=== PATIENT | male | born 1970 | race African-American/Black ===

== ENCOUNTER 2017-04-16 14:28 | Emergency (ER) | payer MEDICAID ==
[~2017-04-16] VITALS: Ht 182.8 cm; Wt 77.1 kg
== END 2017-04-16 15:12 | disposition home or self-care (01) ==
LOC: ED 14:28
DX: Z48.01 Encounter for change or removal of surgical wound dressing (principal); R03.0 Elevated blood-pressure reading, without diagnosis of hypertension

== ENCOUNTER 2017-04-18 14:10 | Emergency (ER) | payer MEDICAID ==
[~2017-04-18] VITALS: Ht 172.7 cm; Wt 81.6 kg
== END 2017-04-18 15:01 | disposition home or self-care (01) ==
LOC: ED 14:10
DX: Z48.01 Encounter for change or removal of surgical wound dressing (principal); L98.429 Non-pressure chronic ulcer of back with unspecified severity; F17.200 Nicotine dependence, unspecified, uncomplicated

== ENCOUNTER 2017-04-20 11:06 | Emergency (ER) | payer MEDICAID ==
[~2017-04-20] VITALS: Ht 172.7 cm; Wt 83.5 kg
== END 2017-04-20 12:15 | disposition home or self-care (01) ==
LOC: ED 11:06
DX: Z48.00 Encounter for change or removal of nonsurgical wound dressing (principal); Z88.6 Allergy status to analgesic agent; F17.200 Nicotine dependence, unspecified, uncomplicated

== ENCOUNTER 2017-05-26 17:52 | Inpatient (IN) | payer MEDICAID ==
[~2017-05-26] VITALS: Ht 177.8 cm; Wt 77.1 kg
[2017-05-26] VITALS (8 sets, daily range): BP systolic 104–125; BP diastolic 56–99
--- NOTE | ~2017-05-26 | PR ---
[place], [place] PROGRESS NOTE NAME: CAMDEN RO II UNIT #: [id number] ROOM: [facility] DOCTOR: KIRILL SOARES MD BIRTHDATE: [birth year] DOS: 05/29/2017 PULMONARY CRITICAL CARE EVALUATION AND MANAGEMENT SUBJECTIVE: The patient remains in the Intensive Care Unit at this time and treated for multiple wound infections as well as acute respiratory failure with a large area of consolidation, acute pneumonia and respiratory failure. The patient has been continued on mechanical ventilation with assist control mode of mechanical ventilation. The bronchoscopy planned to be done today at the bedside for further assessment with recurrent large area of consolidation, infiltration and also to rule out endobronchial obstruction. Feeding, patient has been tolerated. The feeding, patient has been discontinued temporarily from midnight tonight for the bronchoscopy. Vital signs, low-grade fever was noted, 100.7 degree Fahrenheit with a rectal temperature assessment, respiratory rate between 20-23, heart rate 104-114 with sinus tachycardia, which were noted partially decreased with the use of the intravenous pain medication, which was ordered on a scheduled basis. PHYSICAL EXAMINATION: VITAL SIGNS: The blood pressure ranges between 101/63-90/58. Intake for the patient was noted as 4100 mL, output 2600 mL, pulse oxygen saturation 95% saturation noted for this patient 35% oxygen supplementation mechanical ventilator assist control mode mechanical ventilation. CARDIOVASCULAR: S1, S2 audible. LUNGS: General reduction in the breath sounds were noted in the lungs bilaterally. ABDOMEN: Noted soft. The bowel sounds are present. EXTREMITIES: No new changes. Mild edema and the wound as noted previously. LABORATORY DATA: CBC of the patient that was done for this morning was noted with a WBC count of 16.6, hemoglobin 7.7, hematocrit 25.7, platelet count 299,000. The CMP of the patient of this morning noted glucose 170, BUN 21, creatinine was normal, sodium 151, chloride 118, calcium 7.9, which was corrected with the albumin to be normal. Arterial blood gas today, pH of 7.38, pCO2 of 42, pO2 of 86 on 35% oxygen assist control mode mechanical ventilation. Blood culture for the patient, which was done on admission noted with strep pneumonia isolated for this patient, noted pansensitive organisms. Culture of the endotracheal aspirate was also noted positive for the strep pneumonia, similar organism and culture results with moderate isolation of yeast. Several wound culture was noted with evidence of gram-negative infection as Proteus mirabilis as well as staph species. Blood culture one out of the two for the patient 05/27/2017 noted positive for the budding yeast. IMPRESSION: 1. The patient has been currently noted with acute bilateral multilobar pneumonia with a large area of consolidation with acute streptococcal pneumonia and bacteremia. 2. Several wound infections, which has been currently infected with gram-negative and gram-positive infection. 3. Budding yeast in the blood also considered abnormal. The patient does have [place], [place] PROGRESS NOTE NAME: CAMDEN RO II UNIT #: [id number] ROOM: [facility] DOCTOR: HANNA AKERS MD,KIRILL BIRTHDATE: [birth year] a chronic invasive line, has a multi-lumen catheter inserted on this admission for the IV antibiotic therapy. 4. History of chronic paraplegia. 5. Severe protein-calorie malnutrition. 6. Severe debility, which has been noted previously. PLAN OF TREATMENT: The patient will be ordered the Diflucan 4 mg loading dose and then 20 mg IV daily for candidemia. Continuation of antibiotics. The patient with streptococcal pneumonia and the gram-negative coverage for the wound infection. Continue maximum nutrition status. Proceed with the bronchoscopy for this patient as well, which will be done at the bedside. Obtain the chest x-ray in the morning as well. Long-term acute care facility consultation has been ordered for this patient for possible transfer of the patient in the morning has been considered. In the meantime, no other treatment change in plan and management. Any additional treatment changes necessary will be ordered after the bronchoscopy. Other supportive therapy and plan of management. Also, obtain another prealbumin level in the morning for the patient to reassess the response to the current nutritional status, which has been well tolerated by the patient. Total time of pulmonary critical care evaluation and management was 37 minutes. KIRILL FERREIRA MD CM:PNTRANS [phone] KIRILL AKERS MD 05/30/17 0159 interface
--- NOTE | ~2017-05-26 | PR ---
[place], [place] PROGRESS NOTE NAME: CAMDEN RO II UNIT #: [id number] ROOM: [facility] DOCTOR: KIRILL SOARES MD BIRTHDATE: [birth year] DOS: 06/01/2017 SUBJECTIVE: He was seen and examined on 06/01/2017 in the Intensive Care Unit. 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 The patient does not have any endocarditis otherwise. He has been continued to be treated with antifungal therapy as well as getting intravenous antibiotic for the medical management of pneumonia with Streptococcus. Wound infection noticed in the back, which has been treated for gram-positive and gram-negative infection as well effectively. OBJECTIVE: VITAL SIGNS: Which has been recorded showed the temperature noted 99-99.2 degrees Fahrenheit, respiratory rate recorded between 12-26, heart rate 89-83, blood pressure 139/83-144/83. Intake for this patient was noted as 1730 mL and output 2750 mL. Pulse oxygen saturation was noted as 100% on 45% oxygen assist control mode mechanical ventilation. HEENT: Without any new change. The patient remains orally intubated, orogastric tube is in place. The neck was supple. Head was atraumatic. Multi-lumen catheter remains in place in the right internal jugular vein. CARDIOVASCULAR: S1 and S2 audible. LUNGS: Without any wheezing or crackles were noted. ABDOMEN: Soft, nontender. LABORATORY DATA: Wound culture from which his MediPort tube does not show any abnormal growth. Blood culture taken on 05/30/2017, the patient was noted budding yeast. IMPRESSION: 1. The patient who has been currently noted with acute respiratory failure as a result of acute pneumonia. 2. The patient with septic thrombosis noted in the sputum vena cava with fungemia. 3. The patient with severe protein-calorie malnutrition as well. 4. Multiple wounds. 5. History of chronic paraplegia. PLAN OF TREATMENT: Continue current antifungal therapy as well as antibiotics based on the known infections. Continuation of bronchodilators. Continuation of the other previous therapy, plan of management as in progress. The patient was planned for transfer to another hospital where he will be undergoing the radiology intervention for the suction of thrombosis, which was noted septic from the superior vena cava. In the meantime, continue the antifungal coverage. The patient was not noted any further tachycardia or fever at this time. However, he will remain bacteremic patient until the septic thrombosis would be removed from the superior vena cava. In the meantime, other supportive therapy, plan and management continued. Usual care, other supportive plan and treatment. Total time pulmonary critical care management of this patient was 36 minutes. [place], [place] PROGRESS NOTE NAME: CAMDEN RO II UNIT #: [id number] ROOM: [facility] DOCTOR: KIRILL SOARES MD BIRTHDATE: [birth year] KIRILL FERREIRA MD CM:PEMA [phone] KIRILL AKERS MD 06/02/17 0032 interface
--- NOTE | ~2017-05-26 | EKG ---
[place], [place] ELECTROCARDIOGRAM REPORT NAME: CAMDEN RO II UNIT #: [id number] ROOM: [facility] DOCTOR: HANNA AKERS MD,KIRILL BIRTHDATE: [birth year] DOS: 05/26/2017 ELECTROCARDIOGRAM TIME: 6:38 p.m. Sinus tachycardia noted with heart rate of 127 beats per minute. KIRILL FERREIRA MD CM:EKGRPT:ELECTROCARDIOGRAM REPORT [id number] KIRILL AKERS MD
--- NOTE | ~2017-05-26 | PR ---
[place], [place] PROGRESS NOTE NAME: CAMDEN RO II UNIT #: [id number] ROOM: [facility] DOCTOR: HANNA AKERS MD,KIRILL BIRTHDATE: [birth year] DOS: 05/30/2017 SUBJECTIVE: The patient remained in the Intensive Care Unit. He has been started with intravenous Diflucan ____ because of budding yeast noted in the cultures, which were taken from the MediPort. The patient has multi-lumen catheter, right internal jugular vein, which has been currently used for the infusions of the medications and the blood clots. He has self-extubated last night and was reintubated successfully without any difficulty. The patient remains on the same mechanical ventilator settings with assist controlled mode of mechanical ventilation. OBJECTIVE: VITAL SIGNS: The temperature of the patient noted as 100.6-99.4 degrees Fahrenheit, respiratory rate 22-26, heart rate 96-109, blood pressure 109/54-157/77. Intake for this patient was 3100 mL, output 2750 mL with positive fluid balance of 250 mL. Pulse ox saturation on 35% was 94% saturation recorded this morning on assist controlled mode of mechanical ventilation. The patient has been currently orally intubated, orogastric tube is in place. NECK: Supple. CARDIOVASCULAR: S1, S2 is audible. LUNGS: The patient was noted with decreased breath sounds, scattered crackles, no wheezing. ABDOMEN: Soft and nontender. LABORATORY DATA: Gram stain bronchial washings yesterday showed many white blood cells, rare gram-negative bacilli, gram-positive cocci in pairs and rare budding yeast. Culture results were pending for this patient, finally preliminary showing some growth of yeast. Blood culture from the for this patient were noted as budding yeast in both of the bottles. Chest x-ray done this morning was reviewed for this patient shows bilateral pulmonary infiltration, remains persistent. Endotracheal tube was noted in appropriate position. NG tube was noted in the stomach. The CBC shows WBC count today is 19.4, hemoglobin 7.2, hematocrit 24.0, platelet count 191,000. BMP today: BUN 14, creatinine was normal, glucose 183, sodium 150, potassium 3.2, chloride 117. Prealbumin is improved for the patient from 4-11 on today's lab. The calcium noted at 7.7. IMPRESSION: 1. The patient who has been currently noted with isolation with the yeast most likely the source of infection would be considered from the MediPort. 2. Rule out endocarditis as well. 3. Acute bacterial pneumonia for the patient noted Streptococcus pneumoniae. 4. The patient with multiple wounds infected with gram-positive and gram-negative organisms on the back and other areas. 5. The patient with severe protein-calorie malnutrition. 6. Infestation of the head for the patient possibility of the lice as well. 7. Anemia for this patient related to chronic disease is most likely. 8. Hypernatremia and hypokalemia. PLAN OF TREATMENT: Surgical consultation for this patient for removal of the [place], [place] PROGRESS NOTE NAME: CAMDEN RO II UNIT #: [id number] ROOM: [facility] DOCTOR: HANNA AKERS MD,KIRILL BIRTHDATE: [birth year] MediPort for the patient has been ordered, the MediPort need to be removed. The antifungal therapy will be continued on current antibiotics for the patient's Streptococcus pneumoniae and wound infections. Continuation of other supportive therapy, plan of management and care plan. Other additional treatment changes for the patient needs to be made based on progression of the illness. Other supportive plan of care and treatment. Usual care. Nutrition support continued for this patient at the current level resulting in improvement in protein-calorie malnutrition, which were noted severe. Pain management for the patient to be continued. The tachycardia for patient that has been noted seemed to resolved as the patient was started on Diflucan and also getting the appropriate pain medications. Intermittent temperature elevation was still noted. The assessment and management has been discussed with Dr. Rosalino Catalan, the primary care attending of this patient. The patient was planned for discharge to the long-term acute care facility at this time will not be done until the current resolution occurs for this patient and also the endocarditis is excluded. Total time for pulmonary critical care evaluation and management was 38 minutes. KIRILL FERREIRA MD CM:PNTRANS [phone] KIRILL AKERS MD 05/31/17 0325 interface
--- NOTE | ~2017-05-26 | O ---
[place], [place] OPERATIVE NOTE NAME: CAMDEN RO II UNIT #: [id number] ROOM: [facility] DOCTOR: WES BARRAZA DO BIRTHDATE: [birth year] DOS: 05/30/2017 PROCEDURE: Removal of left-sided MediPort. TECHNIQUE: Consent was not obtained due to patient being intubated and the patient's condition. The patient was left in the bed in the supine position. Procedure was done at bedside. The patient was draped in the usual sterile fashion, 1% lidocaine with epinephrine was used for local anesthetic and delivered to the left chest wall. An incision was made and blunt dissection was performed. The MediPort and catheter were successfully removed. Cultures were obtained from the pocket and a 3-0 Vicryl was used to stitch the fibrin tract of the catheter close. The wound was left open, packed with iodoform soaked Kerlix and the wound was dressed. The patient tolerated the procedure well. ATTENDING PHYSICIAN: Dr. Vera. RESIDENT: Dr. Barraza. ESTIMATED BLOOD LOSS: 5 mL. MEDICATIONS: Propofol. PATIENT'S CONDITION: Stable at bedside. Nba Barraza DO EUSEBIO VERA MD CM:OPRECORD:OPERATIVE NOTE [id number] WES BARRAZA DO 05/31/17 2010 interface
--- NOTE | ~2017-05-26 | PR ---
[place], [place] PROGRESS NOTE NAME: CAMDEN RO II UNIT #: [id number] ROOM: [facility] DOCTOR: KIRILL SOARES MD BIRTHDATE: [birth year] DOS: 05/28/2017 SUBJECTIVE: The patient was seen today for pulmonary critical care management. He has been continued on mechanical ventilation, feeding the patient has been tolerating currently noted 50 mL of Pulmocare per hour. He has not been noted any acute hemodynamic instability, persistent sinus tachycardia was noted. The temperature curve was essentially noted as low grade for this patient. The patient has not been noted with any symptoms of hemoptysis. OBJECTIVE: VITAL SIGNS: For the patient, which has been recorded showed the temperature ranged between 102-100.4 degree Fahrenheit rectal temperature, respiratory rate of 28-23, heart rate 119-112 sinus tachycardia, blood pressure 110/68 to 99/61. The intake for this patient recorded 4.5 liters. The output 2.25 liters positive and 2300 mL approximately. Pulse ox saturation 35% oxygen 100% saturation. HEENT: Examination shows no new change. NECK: Supple. CARDIOVASCULAR: S1, S2 is audible. LUNGS: The patient was noted without any wheezing or crackles. Breaths are noted decreased in the lower portion and the mid portion of the lungs bilaterally. ABDOMEN: Soft, nontender. EXTREMITIES: The patient unchanged multiple wounds of the extremities. The patient and the lower back was noted. LABORATORY DATA: CBC this morning, WBC count 17.2, hemoglobin 7.9, hematocrit 26.1 and platelet count 172,000, 92% segmented neutrophils. CMP of this morning, BUN 28, creatinine was normal, glucose 141, sodium 150, potassium 3.4, chloride 118. Phosphorus 2.0. Albumin 1.2, total protein 6.2. Prealbumin noted only 4. Arterial blood gas pH of 7.39, pCO2 of 37, pO2 of 91.8 with 40% oxygen. Wound culture of the patient was noted with moderate growth of gram-negative bacilli, gram-positive. Cocci for this patient in all of the wound were pending. Identification and sensitivity, vancomycin trough level noted at 13.8. CT scan of the chest that was done without contrast today shows extensive area of consolidation, infiltration noted. Pleural base with some ground-glass opacities noted in the lungs. The differential recurrent would be considered as chronic hypersensitivity pneumonitis as well as bacterial infection combination. There was no discrete mass lesion for the patient were present. IMPRESSION: 1. The patient with acute respiratory failure, most likely secondary to aspiration with extensive bilateral pneumonia with large area of consolidation. 2. Evidence of multiple decubitus wound ____ gram-positive, gram-negative infection. 3. Tachycardia. The patient noted most likely chronic pain. ____ of the pain for this patient because of current multiple decubitus wound.\E\ 4. History of paraplegia. 5. Chronic paraplegia. [place], [place] PROGRESS NOTE NAME: CAMDEN RO II UNIT #: [id number] ROOM: [facility] DOCTOR: KIRILL SOARES MD BIRTHDATE: [birth year] 6. Poor hygiene as well. 7. Very severe protein calorie malnutritional status. PLAN OF MANAGEMENT: The bronchoscopy will be done tomorrow morning for more accurate identification of the culture will be necessary for this patient for further medical management. Continue at this time broad-spectrum intravenous antibiotics. Monitor culture results. Maximizing nutritional status. Long-term acute care facility consultation has been obtained as well. Continuation ventilator bundle management and supportive therapy plan and management as in progress. Other supportive care. The patient was started morphine 2 mg every 6 hours around the clock to control the pain that should result in improvement in the tachycardia. Also, the patient will be given intervenous fluids. The patient because of volume contraction causing tachycardia because of the elevation sodium level. Also, correct electrolyte imbalance, hyponatremia and hypophosphatemia as well. IMPRESSION: Hypernatremia related to possibility use of the ____. The patient has intravascular volume depletion. Also, electrolyte imbalance. KIRILL FERREIRA MD CM:PNTRANS [id number] KIRILL AKERS MD 05/28/17 2011 interface
--- NOTE | ~2017-05-26 | CON ---
[place], [place] REPORT OF CONSULTATION NAME: CAMDEN RO II UNIT #: [id number] ROOM: [facility] DOCTOR: KIRILL SOARES MD BIRTHDATE: [birth year] DOS: 05/27/2017 PULMONARY CRITICAL CARE EVALUATION AND MANAGEMENT CONSULTATION REQUESTED BY: Hospitalist, Dr. Hossein Jerry. REASON FOR CONSULTATION: The patient with acute respiratory failure. HISTORY OF PRESENT ILLNESS: This is a 47-year-old -[place]oc[place] male with history of chronic paraplegia remains at home. He has not been apparently taking care of himself. History; the patient is essentially was obtained for this patient for review of the current medical records, the patient which has been documented by the other physician as well as the nurse's notes. He was brought to the hospital by the girlfriend for the patient. The patient was found to have severe hypoxia of patient on arrival. The patient's oxygen saturations noted 77%. He was noted with a decreased responsiveness and acute respiratory failure with acute sepsis. The patient was admitted, intubated and started on mechanical ventilation. Chest x-ray was noted with multiple bilateral opacity of the lungs. The patient was intubated, has not been reported any symptoms or findings of hemoptysis post-intubation. Currently, the patient has been sedated remains on mechanical ventilator with the reduction of the sedation for this patient. The patient's mental status was noted inadequate patient per nursing staff. The patient was also given Versed intravenously as well as also getting intravenous propofol for the patient for sedation; where he intubated this morning. Assessed with patient; he has been rather noted sedated. REVIEW OF SYSTEMS: Could not be completed because of the patient's current intubation and mechanical ventilation and sedation. PAST MEDICAL HISTORY: Has been noted with history of paraplegia after the spinal cord injury for this patient from the past with accident. Multiple ulcers were noted the patient on the skin for the patient buttocks and other areas as well. SOCIAL HISTORY: The patient was reported as history of tobacco use, unknown quantity and duration. There was no history of alcohol use or any illicit drugs reported. PAST SURGICAL HISTORY: Unknown as well. FAMILY HISTORY: The patient was unknown. HOME MEDICATIONS: The patient was none noted. DRUG ALLERGY HISTORY: THE PATIENT WAS REPORTED ALLERGY TO ASPIRIN, IBUPROFEN AND PPD. CURRENT MEDICATIONS: The patient noted a use of folic acid, vitamin D, Lovenox for DVT prophylaxis 40 mg subcutaneous daily, intravenous normal saline, IV [place], [place] REPORT OF CONSULTATION NAME: CAMDEN RO II UNIT #: [id number] ROOM: [facility] DOCTOR: KIRILL SOARES MD BIRTHDATE: [birth year] Levaquin, vancomycin and meropenem. PHYSICAL EXAMINATION: GENERAL: This is a 47-year-old -[place]oc[place] male who has been currently intubated on mechanical ventilator. Height of 5 feet 10 inches, weight of 170 pounds, BMI 24.3. VITAL SIGNS: Temperature 100.8 degrees Fahrenheit to normal temperature, respiratory rate patient recorded between 32-17, heart rate of sinus tachycardia at 132 beats per minute, still noted with sinus tachycardia rate of 120 beats per minute. Pulse oxygen saturation of the patient was noted as 92% on 40% oxygen supplementation mechanical ventilator. HEENT: Examination of patient shows the patient currently intubated, orogastric tube is in place. Large ____ for this patient was noted. CARDIOVASCULAR: S1, S2 is audible. LUNGS: The patient noted with generalized reduction of breath sounds. There were no wheezing or crackles were heard. ABDOMEN: Soft, flat, nontender. EXTREMITIES: The patient was noted without any edema. Multiple ulcers for this patient and the decubitus wounds are noted in the back and other areas parts of the body as well. CENTRAL NERVOUS SYSTEM: History of chronic paraplegia. The patient is currently sedated. MUSCULOSKELETAL: No gross obvious deformities. LABORATORY DATA: The arterial blood gas of the patient on 05/26/2017, pH of 7.26, pCO2 of 52, pO2 of 148 on intubation and mechanical ventilation yesterday. Arterial blood gas repeated later on in the evening, pH of 7.37, pCO2 of 38, pO2 19, 100% oxygen supplementation arterial blood gas this morning, pH of 7.41, pCO2 of 36, pO2 of 112. The tidal volume for the patient was noted as 500 mL, 40% oxygen, respiratory rate of 12 with 0 PEEP. The other lab for the patient to be continued. Lactic acid noted 3.1 on admission with subsequent lactic acid noted at 1.7 less than 24 hours. PT/PTT for the patient 05/27/2017 noted as normal. The CBC of the patient of 05/26/2017, WBC 41.3, hemoglobin 10.5, hematocrit 34.4, platelet count of 222,000 94% segmented neutrophils were noted. The CBC of the patient that was done for the patient this morning showed WBC count 27.4, hemoglobin 8.2, hematocrit 27.1, platelet count 182,000; 94% segmented neutrophils were noted. Blood culture for the patient; both ____ taken emergently yesterday showed gram-positive cocci in pairs for this patient. The urinalysis the patient yesterday was noted as 2+ leukocyte esterase, 4+ bacteria. The PT, PTT, repeated this morning, the patient essentially noted as normal. CMP of the patient that was done for the patient yesterday on admission, BUN of 42, creatinine was normal. Glucose 161. The potassium was 3.3. Alkaline phosphate 171, mildly elevated. Troponin 0.182. CPK 132 with MB of 2.9. CMP of this morning, BUN 34, creatinine was normal, glucose was normal. Potassium 3.1. The troponin 0.189. Review of the radiology data for this patient personally performed; the chest x-ray of the patient that was done for the patient on admission, 05/26/2017 ___ available shows endotracheal tube were noted 5 cm above the mandy level. Large area opacification appeared to be pleural based patient noted in the left upper lobe with some other scattered infiltration. The right lung for this patient was noted with significant [place], [place] REPORT OF CONSULTATION NAME: CAMDEN RO II UNIT #: [id number] ROOM: [facility] DOCTOR: HANNA AKERS MD,[facility] BIRTHDATE: [birth year] opacification of the lungs for the patient involving almost all of the lungs for the patient with possible haziness throughout the lungs for the patient with possibility of layering pleural fluid or others. The chest x-ray of the patient, which were repeated on 05/26/2017 for this patient shows multi-lumen catheter in place. Chest x-ray of the patient of 05/26/2017 for the patient shows endotracheal tube noted about 4.5 cm above the mandy level with unchanged previously infiltration multi-lumen catheter noted in place at this time on the right internal jugular vein. IMPRESSION: 1. The patient who has been currently admitted to the hospital with severe acute sepsis with acute severe hypoxic respiratory failure secondary to that. 2. Acute pneumonia would be considered for aspiration of gram-positive organism, gram-positive cocci bacteremia. For the patient with differential diagnosis streptococcal pneumonia, strep B hemolytic organisms as well as Enterococcus remains in the consideration. 3. Multiple decubitus wounds. The patient with infection as well. 4. Rule out mass-like lesion pleural based for this patient in the left upper lobe as well with the current chest x-ray assessment. 5. Severe protein-calorie malnutrition. 6. History of chronic nicotine dependence. 7. Mild elevation of BUN, mostly secondary to intravascular volume depletion. 8. Mild hyperglycemia was also noted secondary to acute illness. PLAN OF MANAGEMENT: The patient is already getting multiple broad spectrum intravenous antibiotics, which will be closely monitored. Gram-positive cocci bacteremia culture will be monitored from the blood for this patient. Endotracheal aspirate culture was taken. CT scan of the chest was ordered to be done tomorrow morning with intravenous contrast for further assessment of current radiologic abnormality including rule out mass in the left upper lobe as well. DVT prophylaxis: We will continue with Lovenox. Ventilator bundle management and nutrition support was started for the patient. Prealbumin level. The patient will be obtained as well to determine the severity of the protein-calorie malnutrition status. Continue intravenous fluids for this patient as well. We will closely monitor urinary output. Other supportive therapy, plan of management care. Assessment for the patient while the surgery will be recommended about his decubitus wound assessment and further recommendation. Mechanical ventilation changes have been made for the patient started the patient PEEP of 5.0. Continue the same oxygen supplementation, respiratory rate has been decreased to 12 and assist-controlled mode of mechanical ventilation will be continued. All other supportive therapy, plan of management, vasopressor therapy for this patient in case of any further hypertension will be recommended. Sedation medication for the patient would be done for this patient for assessment of the mental status. Other supportive therapy, plan and management and care. Bronchodilator to help mobilize secretions will be continued. Other supportive plan of therapy, care and management plan of care. Usual care, other additional therapy, plan of management. Additional change in treatment will be done for the patient based on the progression of the illness. [place], [place] REPORT OF CONSULTATION NAME: CAMDEN RO II UNIT #: [id number] ROOM: [facility] DOCTOR: HANNA AKERS MD,KIRILL BIRTHDATE: [birth year] Total time, the patient pulmonary critical care evaluation and management and consultation, 42 minutes. KIRILL FERREIRA MD CM:CONSTR:REPORT OF CONSULTATION 1400 06/01/17 0713 interface
--- NOTE | ~2017-05-26 | PROC NOTE ---
[place], [place] PROCEDURE NOTE NAME: CAMDEN RO II UNIT #: [id number] ROOM: [facility] DOCTOR: HANNA AKERS MD,KIRILL BIRTHDATE: [birth year] DOS: 05/29/2017 BRONCHOSCOPY NOTE PREOPERATIVE DIAGNOSES: The patient with large area of consolidation noted in the lungs bilaterally. Greater infiltration noted in the left and the right side, multilobar involvement was noted. POSTOPERATIVE DIAGNOSES: Copious amount of purulent secretions suctioned out, failing the left main stem bronchus, left upper lingular and lower lobe bronchus. There were no endobronchial obstructive lesions were noted. PROCEDURE DESCRIPTION: Informed consent was obtained. Power of research attorney. The patient was transferred to the negative pressure room. The bronchoscopy done at the bedside. Sedation was continued. Video fiberoptic bronchoscope advanced to the endotracheal tube lower part of the trachea, which shows small amount of purulent secretions suctioned out katerine level. Katerine noted sharp. Right upper, middle, lower lobe bronchi are noted with minimal secretions. The washings were done from all the bronchial subsegments in the right side. The left main stem noted field with copious purulent material with some mucous mixture. All secretions suctioned out. Some impaction in the deeper plugs of the mucus noted in the left upper lingula and lower lobe bronchi as well. All the secretions suctioned out clear with the help of normal saline wash and sent for cultures. Procedure was well tolerated by the patient at this time without any difficulty. No changes in the treatment at this time will be necessary. Continue current antibiotic previously. Monitoring culture results. Other supportive therapy, plan. The feeding to be resumed after bronchoscopy. KIRILL FERREIRA MD CM:PROCNOTE:PROCEDURE NOTE [id number] KIRILL AKERS MD
--- NOTE | ~2017-05-26 | PR ---
[place], [place] PROGRESS NOTE NAME: CAMDEN RO II UNIT #: [id number] ROOM: [facility] DOCTOR: HANNA AKERS MD,KIRILL BIRTHDATE: [birth year] DOS: 05/31/2017 PULMONARY CRITICAL CARE EVALUATION AND MANAGEMENT SUBJECTIVE: The patient remains in the Intensive Care Unit sedated with intravenous Diprivan, also p.r.n. use of Versed. This morning the patient's sedation was decreased. He has been noted awake, remains on the mechanical ventilator. The patient has extraction of the MediPort done yesterday from the left chest, which was noted most likely infected and causing candidemia. The culture was sent. The MediPort was removed. Currently, he has an open wound. Possible open healing might be suggested by the surgeon. The patient's feeding has been currently placed on hold. He was planned for the transesophageal echocardiogram to be done today to rule out endocarditis. The patient was continued on antibiotics for acute streptococcal pneumonia as well. OBJECTIVE: VITAL SIGNS: For the temperature curve was noted between 100.8 degree Fahrenheit to normal ____ oral temperature assessment. The respiratory rate ranges between 19-28. Heart rate noted 92-103. Blood pressure 122/71-109/66. Pulse oxygen saturation on 45% oxygen supplementation on assist control mode of mechanical ventilation was 98% saturation this morning. HEENT: Examination shows patient remains intubated. Orogastric tube is in place. Head was atraumatic. NECK: Supple. CARDIOVASCULAR: S1, S2 audible. LUNGS: The patient was noted with moderate decreased breath sounds in the lungs bilaterally. ABDOMEN: Soft, nontender. EXTREMITIES: Noted chronic paraplegia with moderate edema of the upper and both lower extremities. LABORATORY DATA: CBC this morning, WBC count 17.6, hemoglobin 6.4, hematocrit 21.5, platelet count 210,000. Urine culture was noted with light growth of yeast. Arterial blood gas this morning 45% oxygen, pH of 7.47, pCO2 of 38, pO2 of 87 on assist control mode of mechanical ventilation. The CMP that was done this morning shows glucose 127, BUN 12, creatinine was normal, potassium 3.1, sodium of 148, albumin of 1.2 with alkaline phosphatase of 117. Blood culture on as noted previously was budding yeast. Culture of the MediPort: Preliminary showed no bacterial growth ____. Wound culture noted few white blood cells without any organisms noted. IMPRESSION: 1. The patient who has been currently noted persistent acute severe hypoxic respiratory failure with multilobar pneumonia. The patient with area of consolidation in the lungs, staphylococcal in origin. ____ candidemia for this patient as well. 2. The patient with severe protein-calorie malnutrition, which is improving. 3. Status post removal of the MediPort. 4. Hypokalemia. 5. Progressive anemia of the patient, rule out any gastrointestinal bleeding [place], [place] PROGRESS NOTE NAME: CAMDEN RO II UNIT #: [id number] ROOM: [facility] DOCTOR: HANNA AKERS MD,KIRILL BIRTHDATE: [birth year] for patient as well. 6. History of chronic paraplegia. 7. Edema of the upper and the lower extremities secondary to mechanical ventilation and other issues with poor nutritional status. 8. Resolving hypernatremia. PLAN OF MANAGEMENT: Continuation of the DVT prophylaxis. Proceed with transesophageal echocardiogram. Continuation of antifungal therapy and the medical management of the pneumonia as well. The patient will be continued on sedation as well. Blood transfusion of 2 packed RBC will be necessary to improve his progressive anemia. Nutritional support as tolerated. All the other ventilator bundle management. Usual care. Other therapy, plan of management and care. Total time pulmonary critical care evaluation and management was 33 minutes. KIRILL FERREIRA MD CM:PNTRANS [id number] KIRILL AKERS MD 06/01/17 005 interface
--- NOTE | 2017-05-26 18:22 | NUR ---
INTUBATED BY DR TAVARES WITH 7.5 ET TUBE. EQUAL BREATH SOUNDS THROUGHOUT. +CO2 DETECTOR CHANGE. END TIDAL 40. POX 98% WITH VENT. MARIA LUISA GANDHI RN
--- NOTE | 2017-05-26 19:42 | NUR ---
PROPOFOL RATE INCREASED TO 10MCG PER DR HITCHCOCK.
[2017-05-26 19:52] LABS: ABG BASE EXCESS -3.3 mmol/L (-2.0-2.0); ABG HCO3 23.3 mmol/l (22-26); ARTERIAL BLOOD GAS PCO2 52.9 mmHg (35-45); ARTERIAL BLOOD GAS PH 7.268 (7.35-7.45)
[2017-05-26 19:53] LABS: HEMATOCRIT 34.4 % (42.0-52.0); HEMOGLOBIN 10.5 g/dl (14.0-18.0); MEAN CELL VOLUME 77.7 fl (80.0-94.0); MEAN CORPUSCULAR HGB 23.7 pg (27.0-31.0); MEAN CORPUSCULAR HGB CONC 30.5 g/dl (33.0-37.0); MEAN PLATELET VOLUME 10.2 fl (9.6-12.3); PLATELET COUNT AUTOMATED 222 10*3/uL (130-400); RED BLOOD COUNT 4.43 10*6/uL (4.50-5.90); RED CELL DISTRI WIDTH 23.4 % (0-14.5)
--- NOTE | 2017-05-26 20:00 | NUR ---
LACTIC 4.2. DR. HITCHCOCK AWARE.
[2017-05-26 20:03] LABS: ACT PARTIAL THROMBO TIME 39.7 SECONDS (20.8-31.5); INTERNATIONAL NORM RATIO 1.1 (2.0-3.5)
[2017-05-26 20:07] LABS: ALBUMIN 1.5 gm/dl (3.1-4.5); ALKALINE PHOSPHATASE 171 U/L (45-117); BUN 42 mg/dl (7-24); CHLORIDE 102 mmol/L (98-107); CKMB 2.9 ng/ml (0.5-3.6); CPK 154 U/L (39-308); CREATININE 1.03 mg/dL (0.70-1.30); LIPASE 40 U/L (73-393); POTASSIUM 3.3 mmol/L (3.5-5.1); SGOT/AST 14 IU/L (3-35); SGPT/ALT 15 U/L (12-78); SODIUM 138 mmol/L (136-145); TOTAL PROTEIN 7.5 gm/dL (6.4-8.2)
[2017-05-26 20:12] LABS: WHITE BLOOD COUNT 41.3 10*3/uL (4.8-10.8)
--- NOTE | 2017-05-26 20:12 | NUR ---
CRITICAL LAB RESULT WBC 41.3, DR HITCHCOCK AWARE.
[2017-05-26 20:14] LABS: MICROCYTOSIS SLIGHT; PLATELET SUFFICIENCY NORMAL (NORMAL); TOTAL CELLS COUNTED 100 #CELLS
[2017-05-26 20:15] LABS: BURR CELLS FEW
--- NOTE | 2017-05-26 20:15 | NUR ---
CRITICAL LAB RESULT TROPONIN 0.182, DR HITCHCOCK AWARE.
[2017-05-26 20:18] LABS: TROPONIN I 0.182 ng/ml (<0.045)
--- NOTE | 2017-05-26 20:43 | NUR ---
A 47, admitted to ICCU, under the services of EDITH Huff DO with a diagnosis of SEPSIS. Chief complaint is SOB X 3 DAYS. Patient arrived via stretcher from ER.INTUBATED IN ER PT WITH MULTIPLE OPEN WOUNDS, FOUL SMELLING Monitor applied. Initial assessment completed. Vital signs taken and recorded. EDITH HUFF DO notified of admission to the unit. Orders received. See assessment for past medical history, medications and allergies. Patient and/or family oriented to unit. [facility] visitation policy reviewed. Clothing/patient valuable form completed. ESTRELLA VICK
[2017-05-26 22:04] LABS: BILIRUBIN 1+ (NEGATIVE); BLOOD 2+ (NEGATIVE); CLARITY TURBID (CLEAR); COLOR YELLOW (YELLOW); GLUCOSE NEGATIVE (NEGATIVE); KETONE NEGATIVE (NEGATIVE); LEUKO ESTERASE 2+ (NEGATIVE); NITRITE NEGATIVE (NEGATIVE); SPECIFIC GRAVITY 1.015 (1.005-1.030)
[2017-05-26 22:16] LABS: BACTERIA 4+; WBC TNTC wbc/hpf (0-5)
[2017-05-26 23:10] LABS: ABG BASE EXCESS -2.7 mmol/L (-2.0-2.0); ABG HCO3 21.8 mmol/l (22-26); ABG O2 SATURATION 99.3 % (95-97); ARTERIAL BLOOD GAS PH 7.373 (7.35-7.45)
[2017-05-27] VITALS (12 sets, daily range): BP systolic 89–109; BP diastolic 44–65
--- NOTE | 2017-05-27 02:33 | NUR ---
DOCTOR VADIM TO THE FLOOR AMDE HIM AWARE OF CRITCAL LACTIC ACID AND OF PATIENTS HEART RATE IN THE 120'S HE SAID JUST KEEP AN EYE ON HEART RATE AND LACTIC ACID IS COMING DOWN AND PATIENT IS ALREADY ON FLUIDS THATS GOOD.
--- NOTE | 2017-05-27 04:45 | NUR ---
CALLED DOCTOR VADIM INFORMED HIM PATIENT HEART RATE WAS 130 ORDRES RECIEVED.
--- NOTE | 2017-05-27 05:31 | NUR ---
CALLED JALEN FIERRO INFORMED HIM OF PATIENTS BLOOD CULTURE RESULTS AND CURRENT HEART RATE DUIRNG FLUID BOLUS. HE SAID OK.
[2017-05-27 05:47] LABS: ABG BASE EXCESS -1.5 mmol/L (-2.0-2.0); ABG HCO3 22.4 mmol/l (22-26); ARTERIAL BLOOD GAS PH 7.41 (7.35-7.45)
[2017-05-27 06:18] LABS: MEAN CELL VOLUME 77.4 fl (80.0-94.0); MEAN CORPUSCULAR HGB 23.4 pg (27.0-31.0); MEAN CORPUSCULAR HGB CONC 30.3 g/dl (33.0-37.0); MEAN PLATELET VOLUME 11.1 fl (9.6-12.3); PLATELET COUNT AUTOMATED 182 10*3/uL (130-400); RED CELL DISTRI WIDTH 23.4 % (0-14.5); WHITE BLOOD COUNT 27.4 10*3/uL (4.8-10.8)
--- NOTE | 2017-05-27 06:24 | NUR ---
CALLED DOCTOR BLEIBEL PATIENTS LATIC ACID 2.3 NO NEW ORDRES AT THIS TIME.
[2017-05-27 06:28] LABS: ACT PARTIAL THROMBO TIME 35.1 SECONDS (20.8-31.5); INTERNATIONAL NORM RATIO 1.1 (2.0-3.5)
[2017-05-27 06:31] LABS: HEMATOCRIT 27.1 % (42.0-52.0); HEMOGLOBIN 8.2 g/dl (14.0-18.0)
[2017-05-27 06:37] LABS: ALBUMIN 1.2 gm/dl (3.1-4.5); ALKALINE PHOSPHATASE 133 U/L (45-117); BUN 34 mg/dl (7-24); CHLORIDE 110 mmol/L (98-107); CHOLESTEROL 71 mg/dL (<200); CREATININE 0.76 mg/dL (0.70-1.30); FREE T4 1.23 ng/dl (0.76-1.46); HDL CHOLESTEROL 10 mg/dl (40-60); LDL CHOLESTEROL 22 mg/dL (9-159); MAGNESIUM 1.7 mg/dL (1.5-2.1); PHOSPHOROUS 2.3 mg/dL (2.5-4.9); POTASSIUM 3.1 mmol/L (3.5-5.1); SGOT/AST 10 IU/L (3-35); SGPT/ALT 12 U/L (12-78); SODIUM 143 mmol/L (136-145); TOTAL PROTEIN 5.9 gm/dL (6.4-8.2); TRIGLYCERIDES 193 mg/dl (<150); VLDL CHOLESTEROL 39 mg/dL (6-40)
[2017-05-27 06:39] LABS: TROPONIN I 0.189 ng/ml (<0.045)
[2017-05-27 06:42] LABS: THYROID STIM HORMONE (HS) 0.743 uIU/ml (0.358-4.75)
--- NOTE | 2017-05-27 06:45 | NUR ---
CALLED DOCTOR FIERRO PATIENT TROPONIN NO NEW ORDERS AT THIS TIME.
[2017-05-27 06:53] LABS: BURR CELLS FEW; MICROCYTOSIS SLIGHT; PLATELET SUFFICIENCY NORMAL (NORMAL); TOTAL CELLS COUNTED 100 #CELLS
[2017-05-27 07:25] LABS: VITAMIN D, 25-HYDROXY 5.5 ng/mL (30-100)
--- NOTE | 2017-05-27 08:53 | NUR ---
DR FERREIRA IN TO SEE PT.
[2017-05-27] MEDS ORDERED: NATURE'S BLEND F1 MG PO (09:55)
[2017-05-27] MEDS ORDERED: BACLOFEN20 M1 PO (09:55)
[2017-05-27] MEDS ORDERED: PROTONIX40 MG PO (09:56)
[2017-05-27] MEDS ORDERED: ZOFRAN4 MG PO (09:57)
[2017-05-27] MEDS ORDERED: IRON325 M1 PO (09:57)
[2017-05-27] MEDS ORDERED: HUMALOG100 UNIT/2 SQ (09:59)
[2017-05-27] MEDS ORDERED: LANTUS SOL100 UNIT/1 SQ (09:59)
[2017-05-27] MEDS ORDERED: NITROSTAT0.4 MG SL (10:00)
[2017-05-27] MEDS ORDERED: HYDROCODON-ACE1 EACH PO (10:02)
[2017-05-27] MEDS ORDERED: VALIUM10 MG PO (10:03)
[2017-05-27] MEDS ORDERED: OXYCODONE HCL20 M1 PO (10:05)
[2017-05-27] MEDS ORDERED: METFORMIN1000 MG PO (10:05)
[2017-05-27] MEDS ORDERED: HYDROCODONE-IB1 EACH PO (10:08)
--- NOTE | 2017-05-27 10:08 | NUR ---
PT MED LIST RECIEVED FROM SHAHEEN [facility]LTON PHARMACIST. MED LIST UPDATED IN COMPUTER AND LIST PLACED ON CHART.
--- NOTE | 2017-05-27 10:14 | NUR ---
PHYSICAL THERAPY Attempted PT eval this date, per nursing pt is intubated and sedated currently and not appropriate canadate for therapy at this time. Will continue to monitor daily and evaluate when indicated. LEVI EvansT
--- NOTE | 2017-05-27 11:20 | NUR ---
CAMDEN RO II [id number] Please refer to the physician's history and physical for past medical history, comorbid conditions, and allergies. Diagnosis: PARAPLEGIA FOLLOWING SPINAL CORD INJURY SEVERE David Score: 9,VERY HIGH RISK WOUND DESCRIPTIONS: Location of the wound: left ankle Type of wound: stage 4 Thickness: Full Size: 1.5cm x 1.5cm x 0.3cm Tunneling: none Undermining: none Sinus Tract: none Presence of Exudate: serosanguineous Amount: Light Color: Yellow Odor: Foul Periwound Skin Appearance: Normal Wound edges: approximated Pain (associated with wound): none at time of assessment How does patient state this happened? pt unable to state how this happened Location of the wound: right heel Type of wound: unstageable Thickness: Full Size: 4.5cm x 3.5cm x <0.1cm Tunneling: none Undermining: none Sinus Tract: none Presence of Exudate: none Amount: none Color: Brown Odor: None Periwound Skin Appearance: Normal Wound edges: closed Pain (associated with wound): none at time of assessment How does patient state this happened? pt unable to state how this happened Location of the wound: sacrum Type of wound: stage 4 Thickness: Full Size: 9.5cm x 18.0cm c 0.2cm Tunneling: none Undermining: none Sinus Tract: none Presence of Exudate: serosanguineous Amount: Heavy Color: Brown, yellow, red, white Odor: Foul Periwound Skin Appearance: Macerated Wound edges: approximated Pain (associated with wound): none at time of assessment How does patient state this happened? pt unable to state how this happened Location of the wound: left buttocks Type of wound: stage 4 Thickness: Full Size: 7.0cm x 4.0cm x 4.0cm Tunneling: none Undermining: yes Sinus Tract: none Presence of Exudate: serosanguineous Amount: Heavy Color: Yellow Odor: foul Periwound Skin Appearance: Macerated Wound edges: approximated Pain (associated with wound): none at time of assessment How does patient state this happened? pt unable to state how this happened Location of the wound: right buttocks Type of wound: stage 4 Thickness: Full Size: 11.0cm x 7.0cm x 2.4cm Tunneling: none Undermining: none Sinus Tract: none Presence of Exudate: serosanguineous Amount: Light Color: Yellow Odor: foul Periwound Skin Appearance: macerated Wound edges: approximated Pain (associated with wound): none at time of assessment How does patient state this happened? pt unable to state how this happened Surface the patient is resting on: XPRT SKIN PREVENTION RECOMMENDATION: 1. Pressure redistribution support surface as appropriate 2. Elevate heels 3. Remove boots/TEDS every shift and reapply 4. Head of bed 30 degrees as tolerated 5. Assess nutrition and hydration 6. Manage moisture 7. Avoid the use of containment devices while in bed 8. Use absorptive products on surfaces limit layers of linens on bed 9. Turn and reposition every 1-2 hours in bed and every 1 hour in chair as tolerated 10. Weight shifts every 15 minutes while up in chair 11. Offloading with pillows or device to keep heels elevated off bed 12. Monitor skin at least every shift 13. Inspect under medical devices twice a day WOUND TREATMENT RECOMMENDATIONS: cleanse left outer ankle with nss and apply sureprep to surrounding wound then apply versatel to wound bed then cover with therahoney with optifoam gentle. Cleanse areas to coccyx with nss and apply sureprep to the surrounding wound then cover wound bed with maxorb ag the cover with abd and tape. Heel raiser pro boots.
--- NOTE | 2017-05-27 11:37 | NUR ---
DR VEGA MADE AWARE OF NEW CONSULT ORDER AND IN TO SEE PT AT THIS TIME.
--- NOTE | 2017-05-27 12:31 | NUR ---
TUBE FEEDING STARTED AT 40CC/HR.
--- NOTE | 2017-05-27 14:15 | NUR ---
PT MEDICATED WITH TYLENOL 650MG VIA OG TUBE FOR ELEVATED TEMP TODAY.
--- NOTE | 2017-05-27 14:54 | NUR ---
PHYSICAL THERAPY PAtient intubated. No appropriate for PT at this time. Thank you for this referral. Lianna De Santiago,PT
--- NOTE | 2017-05-27 15:21 | NUR ---
PT AWAKE WITH EYES OPEN LOOKING AROUND AT THIS TIME. PT BECOMING ANXIOUS. MEDICATED WITH VERSED 5MG IV ORDERED.
--- NOTE | 2017-05-27 15:56 | NUR ---
PT HEART RATE REMAINS SINUS TACHY 119-125. DR KILPATRICK IN THE ICU AT THIS TIME AND MADE AWARE OF THIS.
--- NOTE | 2017-05-27 20:01 | NUR ---
PATIENT GIVEN TYLENOL FOR RECTAL TEMP OF 102.1. WILL CONTINUE TO MONITOR.
--- NOTE | 2017-05-27 22:00 | NUR ---
CALLED DOCTOR VADIM RECHECKED PATIENTS TEMP WAS STILL 102.0 RECTAL. HE SAID JUST WATCH HIM RECHECK AT MIDNIGHT.
[2017-05-28] VITALS (12 sets, daily range): BP systolic 90–119; BP diastolic 53–68
--- NOTE | 2017-05-28 | NUR ---
RECHECKED PATIENT TEMP 100.9 RECTAL CALLED DOCTOR FIERRO HE SAID THATS FINE AND TO RECHECK AT 0400.
[2017-05-28 04:56] LABS: HEMATOCRIT 26.1 % (42.0-52.0); HEMOGLOBIN 7.9 g/dl (14.0-18.0); MEAN CELL VOLUME 77.4 fl (80.0-94.0); MEAN CORPUSCULAR HGB 23.4 pg (27.0-31.0); MEAN CORPUSCULAR HGB CONC 30.3 g/dl (33.0-37.0); NUCLEATED RED BLOOD CELL 0.1 % (0.0-0.0); PLATELET COUNT AUTOMATED 172 10*3/uL (130-400); RED BLOOD COUNT 3.37 10*6/uL (4.50-5.90); RED CELL DISTRI WIDTH 23.9 % (0-14.5); WHITE BLOOD COUNT 17.2 10*3/uL (4.8-10.8)
[2017-05-28 05:12] LABS: ALBUMIN 1.2 gm/dl (3.1-4.5); ALKALINE PHOSPHATASE 260 U/L (45-117); BUN 28 mg/dl (7-24); CHLORIDE 118 mmol/L (98-107); CREATININE 0.69 mg/dL (0.70-1.30); POTASSIUM 3.4 mmol/L (3.5-5.1); PREALBUMIN 4 mg/dl (20-40); SGOT/AST 16 IU/L (3-35); SGPT/ALT 12 U/L (12-78); SODIUM 150 mmol/L (136-145); TOTAL PROTEIN 6.2 gm/dL (6.4-8.2)
--- NOTE | 2017-05-28 05:16 | NUR ---
PATIENT GIVEN TYLENOL FOR RECTAL TEMP OF 100.4 WILL CONTINUE TO MONITOR.
[2017-05-28 05:27] LABS: TOTAL CELLS COUNTED 100 #CELLS
[2017-05-28 05:28] LABS: PLATELET SUFFICIENCY NORMAL (NORMAL); POLYCHROMASIA SLIGHT
[2017-05-28 05:33] LABS: ABG BASE EXCESS -1.3 mmol/L (-2.0-2.0); ABG HCO3 22.5 mmol/l (22-26); ARTERIAL BLOOD GAS PCO2 37.8 mmHg (35-45); ARTERIAL BLOOD GAS PH 7.398 (7.35-7.45); ARTERIAL BLOOD GAS PO2 91.8 mmHg (80-90)
--- NOTE | 2017-05-28 07:50 | NUR ---
24 HR chart check completed.
--- NOTE | 2017-05-28 07:59 | NUR ---
this client is not presently suicidal and would not require mental healthintervention.
--- NOTE | 2017-05-28 08:16 | NUR ---
PHYSICAL THERAPY Patient continues on vent. Lianna Afsaneh De Santiago,PT
--- NOTE | 2017-05-28 09:00 | NUR ---
ALL DRESSINGS HAD TO BE CHANGED THIS AM R/T NOT INTACT AND SOILED.
--- NOTE | 2017-05-28 11:00 | NUR ---
TAKEN AND RETURNED FOR CTA. PT TOLERATED WELL.
--- NOTE | 2017-05-28 11:23 | NUR ---
Patient clinicals faxed to [facility] for [facility] referral. Waiting on acceptance.
--- NOTE | 2017-05-28 15:37 | NUR ---
[facility] nurse stated patient has had a previous stay at [facility]. I called [facility] to see if they may have an HPOA on file. Donell stated patient has previously been at [facility] and there is no HPOA or family on record. Patient has been accepted to [facility] and can go Wednesday morning.
--- NOTE | 2017-05-28 16:09 | NUR ---
ASTRID FROM [facility] CALLED IN AND STATED THAT PT IS ON THEIR SERVICES AND WILL SEND A LIST OF HIS MEDS AND WOUND CARE TO US THAT ARE PRESCRIBED BY DR CIARAN JIMENEZ OUT OF [place].
[2017-05-28] MEDS ORDERED: HALOPERIDOL1 MG PO (17:46)
--- NOTE | 2017-05-28 19:36 | NUR ---
ASSESSMENT COMPLETED. OGT PLACEMENT VERIFIED BY AIR BOLUS/AUSCULTATION. HOB ELEVATED. FREE WATER WAS ORDERED VIA OGT. VERSED FOR AGITATION AND TYLENOL FOR TEMPERATURE OF 100.9. BED IN TURNING MODE. BILATERAL HEEL PROTECTORS ON. ILEOSTOMY TO RAIN BAG PATENT. COLOSTOMY FUNCTIONAL. PULMONARY TUBE FEEDING CONTINUES VIA OGT AT 50CC/HR. OTHER THAN PT CONTINUING TO BE TACHYCARDIC AT 120/MIN, OTHER VS ARE STABLE.
--- NOTE | 2017-05-28 20:10 | NUR ---
VERSED EFFECTIVE...PT CALM AT THIS POINT.
--- NOTE | 2017-05-28 21:32 | NUR ---
RESTORIL GIVEN FOR SLEEP.
[2017-05-29] VITALS (12 sets, daily range): BP systolic 93–157; BP diastolic 59–87
--- NOTE | 2017-05-29 00:48 | NUR ---
COMPLETE BATH AND BED LINEN CHANGE DONE. VERSED GIVEN PRIOR TO BATH WELL VERSED AT 2039 TYLENOL AT 1944 AND RESTORIL AT 2114 ALL EFFECTIVE FOR AGITATION, FEVER AND SLEEP.
--- NOTE | 2017-05-29 03:41 | NUR ---
[facility] FOR [facility]ONCHOSCOPY THIS AM.
[2017-05-29 04:35] LABS: HEMATOCRIT 25.7 % (42.0-52.0); HEMOGLOBIN 7.7 g/dl (14.0-18.0); MEAN CELL VOLUME 78.1 fl (80.0-94.0); MEAN CORPUSCULAR HGB 23.4 pg (27.0-31.0); MEAN PLATELET VOLUME 11.5 fl (9.6-12.3); NUCLEATED RED BLOOD CELL 0.1 10*3/uL (0.0-0.0); NUCLEATED RED BLOOD CELL 0.4 % (0.0-0.0); PLATELET COUNT AUTOMATED 199 10*3/uL (130-400); RED BLOOD COUNT 3.29 10*6/uL (4.50-5.90); RED CELL DISTRI WIDTH 24.3 % (0-14.5); WHITE BLOOD COUNT 16.6 10*3/uL (4.8-10.8)
[2017-05-29 04:59] LABS: MICROCYTOSIS SLIGHT; PLATELET SUFFICIENCY NORMAL (NORMAL); TOTAL CELLS COUNTED 100 #CELLS
[2017-05-29 05:07] LABS: ALBUMIN 1.2 gm/dl (3.1-4.5); BUN 21 mg/dl (7-24); CHLORIDE 118 mmol/L (98-107); CREATININE 0.64 mg/dL (0.70-1.30); MAGNESIUM 2.1 mg/dL (1.5-2.1); PHOSPHOROUS 2.7 mg/dL (2.5-4.9); POTASSIUM 3.7 mmol/L (3.5-5.1); SGOT/AST 14 IU/L (3-35); SGPT/ALT 12 U/L (12-78); SODIUM 151 mmol/L (136-145); TOTAL PROTEIN 6.4 gm/dL (6.4-8.2)
[2017-05-29 05:08] LABS: ALKALINE PHOSPHATASE 261 U/L (45-117)
[2017-05-29 05:59] LABS: ABG HCO3 24.4 mmol/l (22-26); ABG O2 SATURATION 95.7 % (95-97); ARTERIAL BLOOD GAS PCO2 42.6 mmHg (35-45); ARTERIAL BLOOD GAS PH 7.38 (7.35-7.45); ARTERIAL BLOOD GAS PO2 86.8 mmHg (80-90)
--- NOTE | 2017-05-29 20:00 | NUR ---
PATIENT REMAINS INTUBATED AND SEDATED. PATIENT SHOWING NO SIGNS OF DISTRESS. WILL CONTINUE TO MONITOR.
--- NOTE | 2017-05-29 21:00 | NUR ---
VENT ALARMING, SUCTIONED PATIENT, HEARD GURGLING. CHECKED ENDO TUBE, SHOWING 19 AT LIP, WAS 25. TUBE MADE ITS WAY UP PASSED VOCAL CORDS. CONTACTED DR. FERREIRA HE WANTED HIM REINTUBATED. CONTACTED LENCHO, SHE CALLED DESIREES[facility]onell. PATIENT PUT ON 50% VENTURI, SAT O2 98-100%. PATIENT STABLE AT THIS TIME.
--- NOTE | 2017-05-29 22:00 | NUR ---
PATIENT REINTUBATED BY RONEN. HE ALSO FOUND A PARTIAL IN MOUTH THAT WAS NOT REMOVED PRIOR TO FIRST INTUBATION. PATIENT TOLERATED WELL.
[2017-05-30] VITALS (12 sets, daily range): BP systolic 98–126; BP diastolic 54–71
--- NOTE | 2017-05-30 00:32 | NUR ---
PATIENT SHOWING AGITATION. VERSED GIVEN TO HELP CALM DOWN. WILL CONTINUE TO MONITOR.
--- NOTE | 2017-05-30 01:09 | NUR ---
PATIENT STILL SHOWING SOME AGITATION AFTER VERSED WAS GIVEN. WILL CONTINUE TO MONITOR.
--- NOTE | 2017-05-30 03:35 | NUR ---
TYLENOL GIVEN FOR R TEMP OF 101.6. WILL MONITOR.
[2017-05-30 05:16] LABS: HEMOGLOBIN 7.2 g/dl (14.0-18.0); MEAN CELL VOLUME 78.4 fl (80.0-94.0); MEAN CORPUSCULAR HGB 23.5 pg (27.0-31.0); MEAN PLATELET VOLUME 11.2 fl (9.6-12.3); NUCLEATED RED BLOOD CELL 0.1 10*3/uL (0.0-0.0); NUCLEATED RED BLOOD CELL 0.4 % (0.0-0.0); PLATELET COUNT AUTOMATED 195 10*3/uL (130-400); RED BLOOD COUNT 3.06 10*6/uL (4.50-5.90); RED CELL DISTRI WIDTH 24.4 % (0-14.5); WHITE BLOOD COUNT 19.4 10*3/uL (4.8-10.8)
--- NOTE | 2017-05-30 05:18 | NUR ---
VERSED GIVEN TO HELP CALM DOWN PATIENT DURING ABG'S. EFFECTIVE.
[2017-05-30 05:26] LABS: BUN 14 mg/dl (7-24); CHLORIDE 117 mmol/L (98-107); CREATININE 0.56 mg/dL (0.70-1.30); POTASSIUM 3.2 mmol/L (3.5-5.1); SODIUM 150 mmol/L (136-145)
[2017-05-30 05:30] LABS: PREALBUMIN 11 mg/dl (20-40)
[2017-05-30 05:35] LABS: PLATELET SUFFICIENCY NORMAL (NORMAL); TOTAL CELLS COUNTED 100 #CELLS
[2017-05-30 05:36] LABS: MICROCYTOSIS MODERATE
[2017-05-30 05:53] LABS: ABG BASE EXCESS 3.6 mmol/L (-2.0-2.0); ABG HCO3 26.7 mmol/l (22-26); ABG O2 SATURATION 97.4 % (95-97); ARTERIAL BLOOD GAS PCO2 36.2 mmHg (35-45); ARTERIAL BLOOD GAS PH 7.483 (7.35-7.45); ARTERIAL BLOOD GAS PO2 91.1 mmHg (80-90)
--- NOTE | 2017-05-30 09:00 | NUR ---
DC PLACED ON HOLD R/T POSITIVE BLOOD CULTURES OF BUDDING YEAST VIA MEDIPORT. DR FERREIRA IS RECOMMENDING NANCY. DR KILPATRICK HAS CONSULTED DR CHILEL FROM ID AND DR ADAN FROM CARDIOLOGY. DR VERA IS COMING IN TO REMOVE MEDIPORT AT BEDSIDE WITH DR KILPATRICK ASSISSTING.
[2017-05-30 10:04] LABS: ACID FAST SMEAR Negative (.); ACID FAST SPEC PROCESSING Concentration (.)
--- NOTE | 2017-05-30 13:51 | NUR ---
INFECTED MEDIPORT REMOVED AT BEDSIDE UNDER STERILE FIELD BY DR VERA AND DR KILPATRICK. PT TOLERATED WELL. MEDIPORT TIP AND WOUND CULTURED.
[2017-05-30 15:38] LABS: ACT PARTIAL THROMBO TIME 27.3 SECONDS (20.8-31.5)
--- NOTE | 2017-05-30 19:23 | NUR ---
Shift chart check completed.24 HR chart check completed.
--- NOTE | 2017-05-30 20:33 | NUR ---
ON ASSESSMENT PATIENT REMAINS ORALLY INTUBATED, ON VENTILATOR, ADEQUATELY SEDATED ON 50MCG/KG/MIN OF DIPRIVAN. HE OPENED HIS EYES TO HIS NAME AND REACHED FOR MY HAND ON COMMAND, SO SEDATION VACATION NOT DONE. ROUTINE SCHEDULED MORPHINE GIVEN. TUBE FEEDINGS INFUSING AT 50CC/HR WITH NO RESIDUAL. UROSTOMY TO RAIN BAG WITH CLEAR YELLOW URINE. COLOSTOMY BAG INTACT. BED IN ROTATION MODE. NO OVERT SIGNS OF DISTRESS. SEE ALL APPROPRIATE INTERVENTIONS.
--- NOTE | 2017-05-30 21:24 | NUR ---
VISITOR AT BEDSIDE.
--- NOTE | 2017-05-30 21:42 | NUR ---
VERSED WAS GIVEN FOR ANXIETY WITH RELIEF.
[2017-05-31] VITALS (16 sets, daily range): BP systolic 91–162; BP diastolic 43–83
--- NOTE | 2017-05-31 00:34 | NUR ---
TUBE FEEDING STOPPED AT 0000 FOR NANCY IN AM. ROUTINE SCHEDULED MORPHINE GIVEN. VENTILATOR INTACT. SEE ALL APPROPRIATE INTERVENTIONS.
--- NOTE | 2017-05-31 04:10 | NUR ---
ROUTINE SCHEDULED MORPHINE GIVEN.
[2017-05-31 05:07] LABS: HEMATOCRIT 21.5 % (42.0-52.0); HEMOGLOBIN 6.4 g/dl (14.0-18.0); MEAN CELL VOLUME 79.6 fl (80.0-94.0); MEAN CORPUSCULAR HGB 23.7 pg (27.0-31.0); MEAN CORPUSCULAR HGB CONC 29.8 g/dl (33.0-37.0); MEAN PLATELET VOLUME 11.9 fl (9.6-12.3); NUCLEATED RED BLOOD CELL 0.1 10*3/uL (0.0-0.0); NUCLEATED RED BLOOD CELL 0.4 % (0.0-0.0); PLATELET COUNT AUTOMATED 210 10*3/uL (130-400); RED CELL DISTRI WIDTH 23.9 % (0-14.5); WHITE BLOOD COUNT 17.6 10*3/uL (4.8-10.8)
[2017-05-31 05:36] LABS: ALBUMIN 1.2 gm/dl (3.1-4.5); ALKALINE PHOSPHATASE 170 U/L (45-117); BUN 12 mg/dl (7-24); CHLORIDE 110 mmol/L (98-107); CREATININE 0.43 mg/dL (0.70-1.30); POTASSIUM 3.1 mmol/L (3.5-5.1); SGOT/AST 12 IU/L (3-35); SGPT/ALT 8 U/L (12-78); SODIUM 148 mmol/L (136-145)
[2017-05-31 05:42] LABS: TOTAL CELLS COUNTED 100 #CELLS
[2017-05-31 05:44] LABS: PLATELET SUFFICIENCY NORMAL (NORMAL)
[2017-05-31 05:46] LABS: MICROCYTOSIS SLIGHT
[2017-05-31 05:56] LABS: ABG BASE EXCESS 4.3 mmol/L (-2.0-2.0); ABG HCO3 27.8 mmol/l (22-26); ABG O2 SATURATION 96.9 % (95-97); ARTERIAL BLOOD GAS PCO2 38.9 mmHg (35-45); ARTERIAL BLOOD GAS PH 7.47 (7.35-7.45); ARTERIAL BLOOD GAS PO2 87.6 mmHg (80-90)
--- NOTE | 2017-05-31 06:21 | NUR ---
ABGS WERE DONE BY RESPIRATORY THERAPY. PT REMAINS NPO FOR NANCY TODAY. IV FLUIDS CONTINUE. NO DYSRHYTHMIAS OR RESPIRATORY DISTRESS.
--- NOTE | 2017-05-31 07:06 | NUR ---
24 HR chart check completed.
--- NOTE | 2017-05-31 08:10 | NUR ---
PHYSICAL THERAPY Continues on ventilator. Lianna De Santiago,PT
--- NOTE | 2017-05-31 09:00 | NUR ---
DR JACOBSEN, DR VEGA AND DR FERREIRA INTO ASSESS PT. NEW ORDERS REICIEVED AND CARRIED OUT. UROSTOMY BAG CHANGED R/T YELLOW SLUDGE ACCUMALATED.
[2017-05-31 10:53] LABS: HEMATOCRIT 23.4 % (42.0-52.0); HEMOGLOBIN 6.9 g/dl (14.0-18.0); MEAN CELL VOLUME 79.1 fl (80.0-94.0); MEAN CORPUSCULAR HGB 23.3 pg (27.0-31.0); MEAN CORPUSCULAR HGB CONC 29.5 g/dl (33.0-37.0); MEAN PLATELET VOLUME 11.7 fl (9.6-12.3); NUCLEATED RED BLOOD CELL 0.1 10*3/uL (0.0-0.0); NUCLEATED RED BLOOD CELL 0.4 % (0.0-0.0); PLATELET COUNT AUTOMATED 215 10*3/uL (130-400); RED BLOOD COUNT 2.96 10*6/uL (4.50-5.90); RED CELL DISTRI WIDTH 23.9 % (0-14.5); WHITE BLOOD COUNT 16.8 10*3/uL (4.8-10.8)
[2017-05-31 11:15] LABS: TOTAL CELLS COUNTED 100 #CELLS
[2017-05-31 11:16] LABS: MICROCYTOSIS SLIGHT; PLATELET SUFFICIENCY NORMAL (NORMAL); POLYCHROMASIA SLIGHT
--- NOTE | 2017-05-31 13:36 | NUR ---
NANCY PERFORMED AT BEDSIDE BY DR CARLISLE. START TIME OF 1317 AND END AT 1330. LG INFECTED THROMBUS OF DISTAL SCV. DR KILPATRICK AT BEDSIDE DURING TESTING AND AWARE OF RESULTS.
--- NOTE | 2017-05-31 13:43 | NUR ---
DR FERREIRA MADE AWARE OF NANCY RESULTS AND RECOMMENDS PT TO BE TRANSFERRED TO A HIGHER LEVEL OF CARE.
[2017-05-31] MEDS ORDERED: VANCO 1.251.25 GM/25 IV (15:12)
[2017-05-31] MEDS ORDERED: CEFTRIAXONE2 GM IJ (15:12)
[2017-05-31] MEDS ORDERED: PROPOFOL10 MG/1 ML IV (15:12)
[2017-05-31] MEDS ORDERED: MYCAMINE100 MG IV (15:12)
--- NOTE | 2017-05-31 19:45 | NUR ---
BROTHER DANYELL ZAPATA CALLED IN AND WANTED PT INFO BUT THERE IS NOT A PASSCODE, HE WAS INFORMED OF THIS. HE DID SEEM TO KNOW A LOT THAT HE CLAIMS HE OBTAINED FROM THE PT'S GIRLFRIEND. HE STATES THAT HE IS THE ONLY SURVIVING FAMILY MEMBER AND REQUESTED THAT HIS LOVE BE GIVEN TO THE PT. HE SEEMED VERY RATIONAL AND WAS PLEASANT. RN ASSURED HIM THAT SHE WOULD PASS HIS CALLING IN ALONG TO THE PT.
--- NOTE | 2017-05-31 20:00 | NUR ---
"FRIEND" IN TO SEE PT. THIS FREIND IS VERY RUDE AND UPSET ASKING RN "WHY" HE DIDN'T HAVE A NURSE SEE HIM EVERYDAY AT HOME. RN EXPLAINED THAT SHE CANNOT ANSWER THOSE QUESTIONS BECAUSE SHE WAS NOT INVOLVED IN HIS PRE-HOSPITALIZATION CARE. HIS FRIEND DECIDED TO STOP TALKING ABRUPTLY AND STATED "DON'T ASK ME ANY QUESTIONS BECAUSE I'M NOT GOING TO ANSWER THEM!". RN SAID OK.
--- NOTE | 2017-05-31 22:30 | NUR ---
L CHEST MEDIPORT SITE REDRESSED PER PREVIOUS DRESSING D/T PEELING OFF.
[2017-06-01] VITALS: BP 128/78; BP 155/86
--- NOTE | 2017-06-01 01:39 | NUR ---
24 HR chart check completed.
[2017-06-01 02:00] VITALS: BP 115/70
--- NOTE | 2017-06-01 02:44 | NUR ---
MEDICATED WITH IV VERSED ORDERED FOR AGITATION.
[2017-06-01 04:00] VITALS: BP 139/83
[2017-06-01 06:00] VITALS: BP 141/83
[2017-06-01 08:00] VITALS: BP 120/79
[2017-06-01 09:19] LABS: HEMATOCRIT 29.2 % (42.0-52.0); HEMOGLOBIN 8.9 g/dl (14.0-18.0); MEAN CELL VOLUME 79.3 fl (80.0-94.0); MEAN CORPUSCULAR HGB 24.2 pg (27.0-31.0); MEAN CORPUSCULAR HGB CONC 30.5 g/dl (33.0-37.0); MEAN PLATELET VOLUME 11.4 fl (9.6-12.3); NUCLEATED RED BLOOD CELL 0.1 10*3/uL (0.0-0.0); NUCLEATED RED BLOOD CELL 0.3 % (0.0-0.0); RED BLOOD COUNT 3.68 10*6/uL (4.50-5.90); RED CELL DISTRI WIDTH 22.7 % (0-14.5)
[2017-06-01 09:21] LABS: PLATELET COUNT AUTOMATED 305 10*3/uL (130-400)
[2017-06-01 09:35] LABS: ALBUMIN 1.5 gm/dl (3.1-4.5); ALKALINE PHOSPHATASE 164 U/L (45-117); BUN 8 mg/dl (7-24); CHLORIDE 107 mmol/L (98-107); CREATININE 0.39 mg/dL (0.70-1.30); POTASSIUM 3.1 mmol/L (3.5-5.1); SGOT/AST 13 IU/L (3-35); SGPT/ALT 7 U/L (12-78); SODIUM 146 mmol/L (136-145); TOTAL PROTEIN 7.3 gm/dL (6.4-8.2)
[2017-06-01 09:38] LABS: POLYCHROMASIA SLIGHT; TOTAL CELLS COUNTED 100 #CELLS
[2017-06-01 09:39] LABS: MICROCYTOSIS SLIGHT; PLATELET SUFFICIENCY NORMAL (NORMAL)
--- NOTE | 2017-06-01 09:56 | NUR ---
PHYSICAL THERAPY PAtient is being transferred [facility] this date. Thank you for this referral. samira De Santiago,PT
[2017-06-01 10:00] VITALS: BP 131/81
--- NOTE | 2017-06-01 11:50 | NUR ---
REPORT GIVEN TO SHEKHAR AT [facility].
--- NOTE | 2017-06-01 12:05 | NUR ---
PATIENT TRANSPORTED VIA [facility] TO [facility]. TRANSFER PACKET GIVEN TO AMBULANCE CREW.
[2017-06-02 17:09] LABS: RESULT 1 Candida parapsilosis (.)
[2017-06-02 17:09] LABS: RESULT 1 Candida parapsilosis (.)
[2017-06-04 16:15] LABS: RESULT 1 Candida parapsilosis (.)
[2017-06-04 16:15] LABS: RESULT 1 Candida parapsilosis (.)
== END 2017-06-01 12:05 | disposition short-term general hospital (02) | DRG 314 ==
LOC: ED 17:52 → ICCU 19:38 → EDHOLD 19:38 → ICCU 20:10
PROVIDERS: Emergency Medicine Emergency Medical Services; Family Medicine Adult Medicine; Hospitalist; Internal Medicine; Internal Medicine Cardiovascular Disease; Internal Medicine Critical Care Medicine; ADMIT Internal Medicine
PROC: 02HV33Z Insertion of Infusion Device into Superior Vena Cava, Percutaneous Approach (ICD-10-PCS; 2017-05-26)
PROC: B548ZZA Ultrasonography of Superior Vena Cava, Guidance (ICD-10-PCS; 2017-05-26)
PROC: B24BZZ4 Ultrasonography of Heart with Aorta, Transesophageal (ICD-10-PCS; 2017-05-26)
PROC: 5A1955Z Respiratory Ventilation, Greater than 96 Consecutive Hours (ICD-10-PCS; 2017-05-27)
PROC: 0BH17EZ Insertion of Endotracheal Airway into Trachea, Via Natural or Artificial Opening (ICD-10-PCS; 2017-05-27)
PROC: 0BC28ZZ Extirpation of Matter from Carina, Via Natural or Artificial Opening Endoscopic (ICD-10-PCS; 2017-05-29)
PROC: 0BC48ZZ Extirpation of Matter from Right Upper Lobe Bronchus, Via Natural or Artificial Opening Endoscopic (ICD-10-PCS; 2017-05-29)
PROC: 0BC58ZZ Extirpation of Matter from Right Middle Lobe Bronchus, Via Natural or Artificial Opening Endoscopic (ICD-10-PCS; 2017-05-29)
PROC: 0BC78ZZ Extirpation of Matter from Left Main Bronchus, Via Natural or Artificial Opening Endoscopic (ICD-10-PCS; 2017-05-29)
PROC: 0BC68ZZ Extirpation of Matter from Right Lower Lobe Bronchus, Via Natural or Artificial Opening Endoscopic (ICD-10-PCS; 2017-05-29)
PROC: 0BCB8ZZ Extirpation of Matter from Left Lower Lobe Bronchus, Via Natural or Artificial Opening Endoscopic (ICD-10-PCS; 2017-05-29)
PROC: 0BC98ZZ Extirpation of Matter from Lingula Bronchus, Via Natural or Artificial Opening Endoscopic (ICD-10-PCS; 2017-05-29)
PROC: 05PY33Z Removal of Infusion Device from Upper Vein, Percutaneous Approach (ICD-10-PCS; principal; 2017-05-30)
PROC: 0JPT0XZ Removal of Tunneled Vascular Access Device from Trunk Subcutaneous Tissue and Fascia, Open Approach (ICD-10-PCS; 2017-05-30)
PROC: 30233N1 Transfusion of Nonautologous Red Blood Cells into Peripheral Vein, Percutaneous Approach (ICD-10-PCS; 2017-05-31)
DX: T80.211A Bloodstream infection due to central venous catheter, initial encounter (principal); A41.9 Sepsis, unspecified organism; J96.01 Acute respiratory failure with hypoxia; R65.21 Severe sepsis with septic shock; E43 Unspecified severe protein-calorie malnutrition; J13 Pneumonia due to Streptococcus pneumoniae; L89.154 Pressure ulcer of sacral region, stage 4; L89.224 Pressure ulcer of left hip, stage 4; B49 Unspecified mycosis; E87.2 Acidosis; G82.20 Paraplegia, unspecified; E87.0 Hyperosmolality and hypernatremia; I82.210 Acute embolism and thrombosis of superior vena cava; E87.6 Hypokalemia; D50.9 Iron deficiency anemia, unspecified; L98.499 Non-pressure chronic ulcer of skin of other sites with unspecified severity; L98.422 Non-pressure chronic ulcer of back with fat layer exposed; L98.412 Non-pressure chronic ulcer of buttock with fat layer exposed; Z72.0 Tobacco use; R74.8 Abnormal levels of other serum enzymes; Z88.6 Allergy status to analgesic agent; Z88.8 Allergy status to other drugs, medicaments and biological substances; D64.9 Anemia, unspecified; B37.9 Candidiasis, unspecified; Z72.821 Inadequate sleep hygiene; E53.8 Deficiency of other specified B group vitamins; E55.9 Vitamin D deficiency, unspecified; E67.8 Other specified hyperalimentation; Y83.8 Other surgical procedures as the cause of abnormal reaction of the patient, or of later complication, without mention of misadventure at the time of the procedure; Y92.89 Other specified places as the place of occurrence of the external cause; E87.8 Other disorders of electrolyte and fluid balance, not elsewhere classified; R73.9 Hyperglycemia, unspecified; Z79.899 Other long term (current) drug therapy; Z68.24 Body mass index [BMI] 24.0-24.9, adult; E86.9 Volume depletion, unspecified

== ENCOUNTER 2017-07-21 04:32 | Inpatient (IN) | payer MEDICAID ==
[2017-07-21] VITALS (8 sets, daily range): BP systolic 81–137; BP diastolic 47–97
[~2017-07-21] VITALS: Ht 175.2 cm; Wt 59.0 kg
[~2017-07-21 04:32] MED LIST: BACLOFEN20 M1 PO; CEFTRIAXONE2 GM IJ; HALOPERIDOL1 MG PO; HUMALOG100 UNIT/2 SQ; HYDROCODON-ACE1 EACH PO; HYDROCODONE-IB1 EACH PO; IRON325 M1 PO; LANTUS SOL100 UNIT/1 SQ; METFORMIN1000 MG PO; MYCAMINE100 MG IV; NATURE'S BLEND F1 MG PO; NITROSTAT0.4 MG SL; PROPOFOL10 MG/1 ML IV; PROTONIX40 MG PO; ROXICODONE15 MG PO; VALIUM10 MG PO; VANCO 1.251.25 GM/25 IV; ZOFRAN4 MG PO
[2017-07-21] MEDS ORDERED: METFORMIN HCL1000 M1 PO (04:52)
[2017-07-21] MEDS ORDERED: OMNICEF300 MG PO (04:54)
[2017-07-21] MEDS ORDERED: FLUONAZOLE200 M1 PO (04:56)
[2017-07-21] MEDS ORDERED: NATURE'S BLEND F1 MG PO (04:57)
[2017-07-21 05:25] LABS: BASO % 0.2 % (0.0-1.0); EOS % 0.2 % (1.0-4.0); HEMATOCRIT 31.4 % (42.0-52.0); HEMOGLOBIN 9.7 g/dl (14.0-18.0); LYMPH # 3.4 10*3/uL (1.3-4.4); LYMPH % 16.9 % (27.0-41.0); MEAN CELL VOLUME 78.7 fl (80.0-94.0); MEAN CORPUSCULAR HGB 24.3 pg (27.0-31.0); MEAN CORPUSCULAR HGB CONC 30.9 g/dl (33.0-37.0); MEAN PLATELET VOLUME 9.8 fl (9.6-12.3); MONO # 1.1 10*3/uL (0.1-1.0); MONO % 5.4 % (3.0-9.0); NEUT # 15.2 10*3/uL (2.3-7.9); NEUT % 76.8 % (47.0-73.0); PLATELET COUNT AUTOMATED 460 10*3/uL (130-400); RED BLOOD COUNT 3.99 10*6/uL (4.50-5.90); RED CELL DISTRI WIDTH 17.8 % (0-14.5); WHITE BLOOD COUNT 19.8 10*3/uL (4.8-10.8)
[2017-07-21 05:34] LABS: INTERNATIONAL NORM RATIO 1.1 (2.0-3.5)
[2017-07-21 05:40] LABS: BILIRUBIN NEGATIVE (NEGATIVE); BLOOD TRACE-INTACT (NEGATIVE); CLARITY SL CLOUDY (CLEAR); COLOR YELLOW (YELLOW); GLUCOSE NEGATIVE (NEGATIVE); KETONE NEGATIVE (NEGATIVE); LEUKO ESTERASE 2+ (NEGATIVE); NITRITE POSITIVE (NEGATIVE); PH 8.5 (5.0-9.0); UROBILINOGEN 0.2 E.U./dl (0.2-1.0)
[2017-07-21 05:45] LABS: ALBUMIN 2.2 gm/dl (3.1-4.5); ALKALINE PHOSPHATASE 220 U/L (45-117); BUN 35 mg/dl (7-24); CHLORIDE 96 mmol/L (98-107); CREATININE 0.93 mg/dL (0.70-1.30); LIPASE 282 U/L (73-393); POTASSIUM 5.5 mmol/L (3.5-5.1); SGOT/AST 31 IU/L (3-35); SGPT/ALT 10 U/L (12-78); SODIUM 130 mmol/L (136-145); TOTAL PROTEIN 8.6 gm/dL (6.4-8.2)
[2017-07-21 05:48] LABS: BACTERIA 2+; URINE AMPHETAMINES < 1000 (1000ng/ml); URINE BARBITURATES < 200 (200ng/ml); URINE BENZODIAZEPINES > 200 (200ng/ml); URINE CANNABINOIDS (THC) < 50 (50ng/ml); URINE COCAINE > 300 (300ng/ml); URINE METHADONE < 300 (300ng/ml); URINE OPIATES < 300 (300ng/ml)
[2017-07-21 05:50] LABS: TROPONIN I < 0.015 ng/ml (<0.045)
[2017-07-21 05:50] LABS: URINE PHENCYCLIDINE < 25 (25ng/ml)
--- NOTE | 2017-07-21 06:50 | NUR ---
A 47, admitted to 5E, under the services of POPEYE Parish DO with a diagnosis of SEPSIS. Chief complaint is DEHYDRATION. Patient arrived via bed from ER. Monitor applied. Initial assessment completed. Vital signs taken and recorded. POPEYE PARISH DO notified of admission to the unit. Orders received. See assessment for past medical history, medications and allergies. Patient and/or family oriented to unit. visitation policy reviewed. Clothing/patient valuable form completed. KIM IRWIN
--- NOTE | 2017-07-21 07:21 | NUR ---
[place] RO II [id number] Please refer to the physician's history and physical for past medical history, comorbid conditions, and allergies. Diagnosis: SEVERE SEPSIS, DEHYDRATION David Score: , WOUND DESCRIPTIONS: Location of the wound: sacrum Type of wound: stage 4 Thickness: Full Size: 10cm x 18.5cm x 1.6cm Tunneling: none Undermining: none Sinus Tract: none Presence of Exudate: Sanguineous Amount: Moderate Color: Yellow, red Odor: Foul Periwound Skin Appearance: Normal Wound edges: approximated Pain (associated with wound): patient denied at time of assessment How does patient state this happened? patient does not know how these happened Location of the wound: right buttocks Type of wound: stage 4 Thickness: Full Size: 10.4cm x 12.3cm x 1.5cm Tunneling: none Undermining: none Sinus Tract: none Presence of Exudate: Sanguineous Amount: Moderate Color: Yellow, red Odor: Foul Periwound Skin Appearance: Normal Wound edges: approximated Pain (associated with wound): patient denied at time of assessment How does patient state this happened? patient does not know how these happened Location of the wound: left buttocks Type of wound: stage 4 Thickness: Full Size: 7cm x 6.7cm x 3cm Tunneling: none Undermining: none Sinus Tract: none Presence of Exudate: Sanguineous Amount: Moderate Color: Yellow, red Odor: Foul Periwound Skin Appearance: Normal Wound edges: approximated Pain (associated with wound): pateint denied at time of assessment How does patient state this happened? patient does not know how these happened Location of the wound: right heel Type of wound: stage 4 Thickness: Full Size: 6.5cm x 8cm x 0.1cm Tunneling: none' Undermining: none Sinus Tract: none Presence of Exudate: Sanguineous Amount: Moderate Color: Red Odor: Foul Periwound Skin Appearance: Normal Wound edges: approximated Pain (associated with wound): patient denied pain at time of assessment How does patient state this happened? patient does not know how these happened Location of the wound: left medial foot Type of wound: stage 2 Thickness: Full Size: 4cm x 3cm x 0.1cm Tunneling: none Undermining: none Sinus Tract: none Presence of Exudate: Sanguineous Amount: Light Color: Red Odor: Foul Periwound Skin Appearance: Normal Wound edges: approximated Pain (associated with wound): patient denied at time of assessment How does patient state this happened? patient does not know how these happened Location of the wound: left ankle Type of wound: stage 4 Thickness: Full Size: 3.3cm x 2cm x 0.2cm Tunneling: none Undermining: none Sinus Tract: none Presence of Exudate: Sanguineous Amount: Light Color: Red Odor: Foul Periwound Skin Appearance: Normal Wound edges: approximated Pain (associated with wound): patient denied pain at time of assessment How does patient state this happened? patient does not know how these happened Location of the wound: left lateral foot Type of wound: stage 2 Thickness: Full Size: 0.2cm x 0.3cm x 0.1cm Tunneling: none Undermining: none Sinus Tract: none Presence of Exudate: Serous Amount: Light Color: Red Odor: Foul Periwound Skin Appearance: Normal Wound edges: approximated Pain (associated with wound): patient denied pain at time of assessment How does patient state this happened? patient does not know how these happened Location of the wound: left heel Type of wound: unstagable Size: 1.4cm x 1.7cm x <0.1cm Tunneling: none Undermining: none Sinus Tract: none Presence of Exudate:none Amount: None Color: Brown Odor: Foul Periwound Skin Appearance: Normal Wound edges: closed Pain (associated with wound): patient denied pain at time of assessment How does patient state this happened? patient does not know how these happened Location of the wound: left hip Type of wound: stage 2 Thickness: Full Size: 8cm x 1.2cm x 0.1cm Tunneling: none Undermining: none Sinus Tract: none Presence of Exudate: Serous Amount: Light Color: Red Odor: Foul Periwound Skin Appearance: Normal Wound edges: approximated Pain (associated with wound): patient denied at time of assessment How does patient state this happened? patient does not know how these happened Location of the wound: left great toe Type of wound: stage 4 Thickness: Full Size: 1.8cm x 1.5cm x 0.2cm Tunneling: none Undermining: none Sinus Tract: none Presence of Exudate: Purulent Amount: Light Color: Brown Odor: Foul Periwound Skin Appearance: Normal Wound edges: approximated Pain (associated with wound): patient denied at time of assessment How does patient state this happened? patient does not know how this happened Surface the patient is resting on: Isoflex SKIN PREVENTION RECOMMENDATION: 1. Pressure redistribution support surface as appropriate 2. Elevate heels 3. Remove boots/TEDS every shift and reapply 4. Head of bed 30 degrees as tolerated 5. Assess nutrition and hydration 6. Manage moisture 7. Avoid the use of containment devices while in bed 8. Use absorptive products on surfaces limit layers of linens on bed 9. Turn and reposition every 1-2 hours in bed and every 1 hour in chair as tolerated 10. Weight shifts every 15 minutes while up in chair 11. Offloading with pillows or device to keep heels elevated off bed 12. Monitor skin at least every shift 13. Inspect under medical devices twice a day WOUND TREATMENT RECOMMENDATIONS: Consult Dr. Singh for possible debridement and was his patient prior. Cleanse sacrum and buttocks wounds with NS. Apply sureprep and apply maxorb ag and cover with ABDs and secure with paper tape. Cleanse right heel, left medial foot, left ankel, left lateral foot, left hip, and left great toe with NS, Apply sureprep. cover with dry dressing (optifoam, rolled gauze). Left heel cleanse with NS. Apply sureprep. Allow time to dry and cover with optifoam gentle.
--- NOTE | 2017-07-21 07:34 | NUR ---
MED REC UPDATED WITH PT MED BOTTLES FROM HOME
--- NOTE | 2017-07-21 08:03 | NUR ---
NOTIFIED OF CONSULT
--- NOTE | 2017-07-21 08:37 | NUR ---
NOTIFIED OF PATIENTS REFUSAL FOR CT ABD.
[2017-07-21 12:36] LABS: BUN 35 mg/dl (7-24); CHLORIDE 98 mmol/L (98-107); CREATININE 0.92 mg/dL (0.70-1.30); SODIUM 132 mmol/L (136-145)
[2017-07-21 12:38] LABS: POTASSIUM 4.1 mmol/L (3.5-5.1)
--- NOTE | 2017-07-21 14:47 | NUR ---
DRESSING CHANGED PER ORDER, PT TOLERATED WELL
--- NOTE | 2017-07-21 14:49 | NUR ---
IV TO RIGHT WRISR OCCLUDED, NEW IV STARTED IN RIGHT ANTICUBITAL 24 MOUNIKA ON FIRST ATTEMPT, GOOD LOOD RETURN, FLUSHED WITHOUT DIFFUCULTY PT TOLERATED WELL
--- NOTE | 2017-07-21 16:04 | NUR ---
NOTIFIED OF HYPOTENSION, BP 80/40'S, PT DROWSY AND REQUESTING VALIUM AND "WHATEVER" PAIN MEDS HE CAN HAVE AT THIS TIME, DISCUSSED CONCERN WITH . NO MEDS GIVEN AT THIS TIME. 1X BOLUS OF NORMAL SALINE INFUSIONING PER ORDER
--- NOTE | 2017-07-21 22:55 | NUR ---
this client is not suicidal, was admitted for sepsis, does not require intervention based on the score assessment.
--- NOTE | 2017-07-21 23:55 | NUR ---
Saurav STERN CALLED AND NOTIFIED OF A MANUAL BLOOD PRESSURE OF 82/50. 500 ML FLUID BOLUS ORDERED NOW THEN CONTINUOS FLUID AFTERWARDS.
[2017-07-22] VITALS (7 sets, daily range): BP systolic 94–140; BP diastolic 50–76
--- NOTE | 2017-07-22 01:33 | NUR ---
CURRENT BP 98/52 WILL REASSESS IN 1 HR.
--- NOTE | 2017-07-22 02:50 | NUR ---
BP 90/54 MANUALLY ON REASSESSMENT. Jurgen CAMACHO NOTIFIED AND INSTRUSTED US TO MONITOR THE BP CLOSELY AND NOTIFY HER OF CHANGES.
--- NOTE | 2017-07-22 03:00 | NUR ---
GIVEN PRN NORCO FOR COMPLAINTS OF "PAIN ALL OVER" PT STATES IT IS NOT ENOUGH AND HE WOULD LIKE HIS "OXY".
[2017-07-22 08:45] LABS: MEAN CELL VOLUME 80.6 fl (80.0-94.0); MEAN CORPUSCULAR HGB 24.4 pg (27.0-31.0); MEAN CORPUSCULAR HGB CONC 30.3 g/dl (33.0-37.0); MEAN PLATELET VOLUME 10.1 fl (9.6-12.3); PLATELET COUNT AUTOMATED 324 10*3/uL (130-400); RED BLOOD COUNT 2.99 10*6/uL (4.50-5.90); RED CELL DISTRI WIDTH 17.8 % (0-14.5); RETICULOCYTE % 0.81 % (0.50-2.50); WHITE BLOOD COUNT 10.8 10*3/uL (4.8-10.8)
[2017-07-22 08:49] LABS: HEMATOCRIT 24.1 % (42.0-52.0); HEMOGLOBIN 7.3 g/dl (14.0-18.0)
[2017-07-22 09:08] LABS: ACT PARTIAL THROMBO TIME 31.9 SECONDS (20.8-31.5)
[2017-07-22 09:11] LABS: ALBUMIN 1.7 gm/dl (3.1-4.5); CHLORIDE 106 mmol/L (98-107); PHOSPHOROUS 3.2 mg/dL (2.5-4.9); POTASSIUM 3.5 mmol/L (3.5-5.1); SGPT/ALT 11 U/L (12-78); SODIUM 137 mmol/L (136-145)
[2017-07-22 09:20] LABS: ALKALINE PHOSPHATASE 183 U/L (45-117); CREATININE 0.71 mg/dL (0.70-1.30); FERRITIN 88.8 ng/mL (22.0-322.0); FREE T4 1.37 ng/dl (0.76-1.46); IRON 16 ug/dL (65-175); SGOT/AST 7 IU/L (3-35); TOTAL IRON BINDING CAPACITY 187 ug/dl (250-450); TOTAL PROTEIN 6.2 gm/dL (6.4-8.2); VITAMIN D, 25-HYDROXY 7.3 ng/mL (30-100)
[2017-07-22 09:22] LABS: BUN 23 mg/dl (7-24)
[2017-07-22 09:27] LABS: PLATELET SUFFICIENCY NORMAL (NORMAL); TOTAL CELLS COUNTED 100 #CELLS
[2017-07-22 09:28] LABS: OVALOCYTES FEW; POLYCHROMASIA SLIGHT
--- NOTE | 2017-07-22 11:42 | NUR ---
SW SPOKE WITH PT TO ABOUT SNF OR HOME HEALTH SERVICES. PT WILL ACCEPT HOME HEALTH SERVICES BUT DOES NOT REMEMBER THE AGENCY THAT WAS IN HIS HOME BEFORE.
--- NOTE | 2017-07-22 11:45 | NUR ---
Nutritional Support Services Note: Diet changed to regular with Boost po tid. Pt needs an increase and calories and protein to promote healing. Will provide pt with a night snack. Pt has numerous wounds, parapalegic. He requires 89grams of protein daily. Appetite is good. Encourage intake. Llia Ruby
--- NOTE | 2017-07-22 11:49 | NUR ---
SPOKE TO DR ANGEL REGARDING PAIN MEDS PREVIOUSLY DISCUSSED WITH PT WHILE I WAS NOPT PRESENT. PT IS SCREAMING AT ME,AND HIGHLY UPSET WITH DR BARRY AND RESIDENTS. DR CRUZ ATTEMOPTED TO SPEAK TO THE PT BUT HE STILL IS AGITATED. PT STATING "HE WANTS TO BE TRANSFERRED TO [facility]". I ATTEMPTED TO CALM PT AND TO NO AVAIL.I NOTIFIED CHARGE AND NURSING EXCEL EXPERT. AWAITING PAIN MEDICATION ORDERS.
--- NOTE | 2017-07-22 12:15 | NUR ---
NOTIFIED DR ANGEL PT HAD CALMED DOWN AND I WAS ABLE TO DO MY ASSESSMENT AND PT HAS A MOIST,WEAK COUGH. LUNGS RODAS WITH SCATTERED RHONCHI AND RALES TO POST BASES. AWAITING ORDERS. PT IS CURRENTLY RECIEVING NS0.9% @ 125ML/HR.BAG #8.
--- NOTE | 2017-07-22 13:14 | NUR ---
AMY TRIED TO CALL RAT POISONER LISTED ON THE CHART [facility] BUT THE NUMBER WAS WRONG. AMY CALLED AND SPOKE WITH [facility] DEPT. OF JOB AND FAMILY SERVICES. E COMMERCE MERCHANDISING COORDINATOR SAID PT WAS IN THE [facility] UNIT WITH MARQUISE. SW LEFT A VM FOR MARQUISE TO CALL IF SHE HAD A DIFERENT NUMBER FOR [facility] OR IF SHE KNEW WHO PT HAD FOR HOME HEALTH SERVICES. NUMBER WAS GIVEN.
--- NOTE | 2017-07-22 14:02 | NUR ---
SPOKE TO DR Trenton ANGEL REGARDING FLUIDS AND PT'S RESPITORY STATUS. NOTIFIED HER THAT PT WAS SOB AND REQUESTED O2. PLACED 2LNC. ORDER RECIEVED TOP D/C FLUIDS.
--- NOTE | 2017-07-22 17:04 | NUR ---
PT WOUND CARE COMPLETED TO THE PT'S BILATERAL HEELS. NO COMPLAINTS FROM PT. PT REINFORCED ON BGM MACHINE BUT STILL NEEDS MORE TRAINING. PATIENT GIVEN VALIUM PER REQUEST. NO OTHER CONCERNS AT THIS TIME.
--- NOTE | 2017-07-22 18:17 | NUR ---
UNABLE TO PLACE IV IN PT FOR CTA.
--- NOTE | 2017-07-22 20:08 | NUR ---
DR. CRUZ NOTIFIED AT THIS TIME THAT DAYLIGHT UNABLE TO GET LINE ACCESS FOR CTA THAT WAS ORDERED. THIS NURSE INQUIRED IF THE PATIENT WAS GETTING A NANCY TO SEE IF HE STILL HAD ENDOCARDITIS AND IF THEY WERE LOOKING FOR A POSSIBLE LINE PLACEMENT, DR. CRUZ STATED THAT HE WAS NOT NOTIFIED THAT THE LINE COULD NOT BE ACCESSED BUT HE WILL SPEAK TO HIS SENIOR ATTENDING AND DISCUSS THE PLAN CARE OF
--- NOTE | 2017-07-22 20:10 | NUR ---
PT WAS OFFERED PRN PAIN MEDICATION PRIOR TO DRESSING CHANGE. PT STATES "I'M NOT READY FOR A DRESSING CHANGE RIGHT NOW, I NEED GET A COUPLE MORE HOURS SLEEP FIRST."
--- NOTE | 2017-07-22 22:37 | NUR ---
ATTEMPTED TO TRAIN PT ON THEIR NEW GLUCOMETER. PT IS NOT RECPETIVE TO TEACHING AND CONTINUALLY ASKS TO RECIEVE HIS PRN OXYCODONE. THE PATIENTS MEDICATION SCHEDULE WAS EXPLAINED TO HIM ALONG WITH THE IMPORTANCE OF ADHEARING TO IT. WHILE EXPLAINING TO THE PATIENT THAT HE WOULD BE NPO AFTER MIDNIGHT FOR HIS NANCY IN THE MORNING THE PATIENT STATED "I DONT WANT TO DO THAT THATS JUST A GRAB FOR MONEY".
--- NOTE | 2017-07-22 22:56 | NUR ---
SPOKE WITH JOCELINE IN CT SCAN. DOUBLE CHECKED AND ASKED IF PATIENT HAS TO BE NPO FOR FOUR HOURS. NOTIFIED HER THAT WE WERE GOING TO ATTEMPT TO OBTAIN IV ACCESS FOR TESTING, BUT DOCTOR WAS NOTIFIED THAT IV ACCESS WAS UNABLE TO BE OBTAINED, BUT WE WILL LET RADIOLOGY KNOW IF PATIENT WILL BE AGREEABLE TO NPO STATUS AND IF WE ARE ABLE TO OBTAIN ACCESS
--- NOTE | 2017-07-22 23:50 | NUR ---
SEVERAL NURSES ATTEMPTED TO PLACE AN IV IN ORDER FOR THE PATIENT TO RECIEVE A CT WITH CONTRAST HOWEVER THEY WERE UNSUCESSFUL. Jurgen CAMACHO WAS NOTIFIED AND ASKED IF THE PATIENT COULD HIS PO PAIN MEDICATION AND SOMETHING TO EAT PER THE PATIENTS REQUEST. DR. CHAN ALLOWED A LIGHT SNACK AND THE PAIN MEDICATION DUE TO THE PATIENTS PROCEDURE BEING SCHEDULED FOR TOMORROW AFTERNOON.
[2017-07-23] VITALS (8 sets, daily range): BP systolic 115–153; BP diastolic 54–90
--- NOTE | 2017-07-23 06:51 | NUR ---
ATTEMPTED TO HAVE THE PATIENT SIGN THE PREOP QUESTIONAIRE. THE PT BECAME ARGUEMENTATIVE WHEN HE SAW THAT HE TESTED POSITIVE FOR COCAINE AND SCRIBBLED OVER COCAINE ON THE PAPER. THE PT FURTHER STATED HE WANTED HIS PAIN PILL. I TOLD THE PT HE WAS NOT ALLOWED ANYTHING BY MOUTH HOW EVER HE CONTINUED TO ARGUE AND STATED HE NEVER HAD HIS PAIN PILL WITH HELD BEFORE A SURGERY BEFORE.
--- NOTE | 2017-07-23 06:55 | NUR ---
CALLED DR. CHAN AT THIS TIME FOR SURGERY REQUESTING FOR A DOCTOR TO HAVE THE PICC LINE CONSENT SIGNED BY THE DOCTOR. DR. CHAN STATED SHE WOULD HAVE A DOCTOR COME UP TO HAVE IT SIGNED BEFORE THEY LEAVE TODAY
--- NOTE | 2017-07-23 07:11 | NUR ---
PT STATED DR CRUZ SAID HE WAS ABLE TO HAVE HIS PAIN MED AND AN ORANGE JUICE. DR CRUZ WAS CALLED TO CONFIRM AND HE STATED PT COULD HAVE A NORCO AND A SIP OF WATER.
--- NOTE | 2017-07-23 07:57 | NUR ---
REFUSED VITALS FOR 0800
--- NOTE | 2017-07-23 10:16 | NUR ---
PATIENT REFUSED DRESSING CHANGE AND REFUSED TO LET NURSE OBSERVE WOUNDS AT THIS TIME. NO OTHER CONCERNS.
[2017-07-23 10:42] LABS: BASO % 0.2 % (0.0-1.0); EOS # 0.1 10*3/uL (0.0-0.4); EOS % 1.1 % (1.0-4.0); HEMATOCRIT 25.4 % (42.0-52.0); HEMOGLOBIN 7.8 g/dl (14.0-18.0); LYMPH # 2.7 10*3/uL (1.3-4.4); LYMPH % 21.6 % (27.0-41.0); MEAN CELL VOLUME 79.9 fl (80.0-94.0); MEAN CORPUSCULAR HGB 24.5 pg (27.0-31.0); MEAN CORPUSCULAR HGB CONC 30.7 g/dl (33.0-37.0); MEAN PLATELET VOLUME 9.8 fl (9.6-12.3); MONO # 0.7 10*3/uL (0.1-1.0); MONO % 5.4 % (3.0-9.0); NEUT % 71.1 % (47.0-73.0); PLATELET COUNT AUTOMATED 370 10*3/uL (130-400); RED BLOOD COUNT 3.18 10*6/uL (4.50-5.90); RED CELL DISTRI WIDTH 17.6 % (0-14.5); WHITE BLOOD COUNT 12.7 10*3/uL (4.8-10.8)
[2017-07-23 10:58] LABS: CHLORIDE 102 mmol/L (98-107); CREATININE 0.66 mg/dL (0.70-1.30); POTASSIUM 3.4 mmol/L (3.5-5.1); SODIUM 135 mmol/L (136-145)
[2017-07-23 11:03] LABS: BUN 12 mg/dl (7-24)
--- NOTE | 2017-07-23 12:20 | NUR ---
PT REFUSED BLOOD GLUCOSE CHECK.
--- NOTE | 2017-07-23 15:30 | NUR ---
PATIENT REFUSED V/Q SCAN. THE PATIENT STATED THAT HE WANTED FOOD AND WAS EXPLAINED TO THAT HE WAS ALOUD TO EAT BEFORE THE SCAN AND WAS OFFERED SNACK FOOD BEFORE BUT THE PATIENT STATED THAT HE WANTED FOOD FROM THE [facility] AND WAS TOLD THAT BY THE TIME HE ORDERED HIS FOOD AND HAD THE V/Q SCAN THAT HIS FOOD WOULD BE READY FOR HIM. THE PATIENT WAS ALSO TOLD THAT HE WOULD NOT BE ABLE TO GET A V/Q SCAN FOR THE REST OF THE DAY AND STILL REFUSED THE TEST.
--- NOTE | 2017-07-23 19:30 | NUR ---
ASSUMED CARE OF PT AT THIS TIME, RESPS EASY AND NONLABORED WITH NO S/S OF DISTRESS CALL LIGHT WITH IN REACH
--- NOTE | 2017-07-23 22:00 | NUR ---
AWAKEN PT WHEN WALKING INTO ROOM,PT ASKING WHERE HIS PAIN MEDICATION IS PT AGGITATED WITH THIS NURSE STATING THAT HE WANT HIS OXY ALONG WITH HIS VALIUM AND NORCO, INSTRTUCTED PT THAT THIS NURSE COULD NOT ADMINISTER ALL OF THESE MEDICATIONS TOGETHER, AND PT BECAME ANGRY, REFUSED TO CHECK BLOOD GLUCOSE LEVEL, PT STATES THAT HE WILL TAKE THE NORCO AT THIS TIME, AND BECOMES AGGITATED AGAIN, ASKING IF OXY HAS BEEN DISCONTINUED, INSTRUCTED PT THAT MEDICATION HAS NOT BEEN DISCONTINUED BUT HAS EPISODES OF HYPOTENSTION WHEN TAKING THE OXY, INSTRUCTED PT TO SPEAK WITH MD REGARDING MEDICATIONS, PT THEN BECAME ANGRY AND DEMANDED TO KNOW WHEN HE COULD HAVE NORCO AGAIN. INSTRUCTED PT THAT IT WOULD BE 4 HOURS BUT HE WOULD NEED TO ASK FOR THE MEDICATION WHEN HAVING PAIN
[2017-07-24] VITALS: BP 135/88
--- NOTE | 2017-07-24 01:20 | NUR ---
NOTIFIED BY PATIENT ATTENDANT THAT COLOSTOMY BAG WAS OFF AND LEAKING, WHEN ENTERING INTO ROOM, INSTRUCTED PT THAT BAG NEEDED TO BE CHANGED UPON RAISING COVERS, PT TRIED TO HIT THIS NURSE, INSTRUCTED PT THAT THERE WAS NO NEED TO DO THIS TO NURSE, PT AGGITATED AND STARTS YELLING THAT IT WAS FIXED ALREADY BAG WAS LOOSE AND FULL OF AIR, PT REFUSED TO LET NURSE TO DO ANY FURTHER CARE. NURSE EXITED ROOM.
--- NOTE | 2017-07-24 01:30 | NUR ---
CALL PLACED TO SHIPPING ASSOCIATE RESIDENT ABOUT PT WITH INCREASED AGGITATION, STATES TO CALL CODE JOSE IF NEEDED
--- NOTE | 2017-07-24 01:50 | NUR ---
CALL FROM MOTOR BRAKEMAN THAT LEADS ARE OFF, NURSING STAFF TO PTS ROOM, AND INCREASED AGGIATION AT THIS TIME, STATES THAT HE WANTS PAIN MEDICATION AND TO BE LEFT ALONE, PT THEN BECOMES ANGRY AT STAFF AND ARGUMENTIVE WITH ALL NURSING STAFF IN ROOM, PT REFUSED TO TAKE PAIN MEDICATION AFTER REQUESTING IT, SCREAM THAT HE WANTS JUICE AND INCREASED AGGITATION ABOUT TAKING MEDICATION WITH WATER, PATIENT ATTENDANT GOT PT A JUICE TO TAKE PAIN MEDICATIONS WITH. PT STATES THAT HE IS DIRTY, NURSE OFFERS TO CHANGE BEDDING CLOTHES AND COLOSTOMY BAG AND PT GET AGGITATED AND TELL NURSE TO JUST GET OUT OF HIS ROOM
--- NOTE | 2017-07-24 05:35 | NUR ---
PT C/O PAIN REQUESTED AND ADMINISTERED NORCO PO PRN PER ORDERS. WILL MONITOR EFFECTS
--- NOTE | 2017-07-24 06:33 | NUR ---
PT NO LONGER C/O PAIN AT THIS TIME, RESPS EASY AND NONLABORED WITH NO S/S OF DISTRESS CALL LIGHT WITH IN REACH
[2017-07-24 07:15] LABS: BASO % 0.3 % (0.0-1.0); EOS # 0.1 10*3/uL (0.0-0.4); EOS % 0.8 % (1.0-4.0); HEMATOCRIT 27.4 % (42.0-52.0); HEMOGLOBIN 8.5 g/dl (14.0-18.0); LYMPH # 2.6 10*3/uL (1.3-4.4); LYMPH % 20.2 % (27.0-41.0); MEAN CELL VOLUME 79.2 fl (80.0-94.0); MEAN CORPUSCULAR HGB 24.6 pg (27.0-31.0); MEAN PLATELET VOLUME 10.2 fl (9.6-12.3); MONO # 0.7 10*3/uL (0.1-1.0); MONO % 5.2 % (3.0-9.0); NEUT # 9.3 10*3/uL (2.3-7.9); PLATELET COUNT AUTOMATED 420 10*3/uL (130-400); RED BLOOD COUNT 3.46 10*6/uL (4.50-5.90); RED CELL DISTRI WIDTH 17.5 % (0-14.5); WHITE BLOOD COUNT 12.8 10*3/uL (4.8-10.8)
[2017-07-24 07:47] LABS: BUN 10 mg/dl (7-24); CHLORIDE 99 mmol/L (98-107); POTASSIUM 3.5 mmol/L (3.5-5.1); SODIUM 134 mmol/L (136-145)
[2017-07-24 07:48] LABS: CREATININE 0.69 mg/dL (0.70-1.30)
[2017-07-24 08:00] VITALS: BP 104/60
--- NOTE | 2017-07-24 08:29 | NUR ---
Shift chart check completed.
--- NOTE | 2017-07-24 10:15 | NUR ---
WENT IN TO ASSESS PATIENT. ASKED IF HE WANTED TO GET WASHED UP. HE STATED HE WANTED TO SLEEP FOR A HALF HOUR. PATIENT REFUSED LOVENOX. PATIENT TOOK HIS MEDICATION. PATIENT REFUSED TO SIT UP FOR ME TO FINISH ASSESSING HIM. HE REFUSED TO LET ME EMPTY HIS COLOSTOMY. PATIENT WAS UPSET THAT HE IS NOT GETTING HIS VALIUM Q8 HOURS SCHEDULED. I ADVISED PATIENT IT IS ORDERED PRN. I ADVISED THAT I WOULD GO GET IT. HE STATED THAT EVERYONE IS UPSET THAT HE IS GETTING AXIOUS AND ANGRY BUT WE AREN'T MEDICATING HIM. I ADVISED I HAD NO PROBLEM GOING AND GETTING IT AND IT WOULD ONLY TAKE 2 MINUTES. HE STATED THAT NO HE WOULD WAIT AN HOUR NOW BEFORE HE GETS WASHED UP AND I CAN BRING IT BACK THEN. WILL ATTEMPT TO ASSIST AIDES FOR DRESSING CHANGES AT THAT TIME.
--- NOTE | 2017-07-24 11:15 | NUR ---
PATIENT STATES MEDICATION EFFECTIVE
--- NOTE | 2017-07-24 11:57 | NUR ---
PATIENT MEDICATED WITH PO VALIUM FOR ANXIETY
[2017-07-24 12:00] VITALS: BP 136/87
--- NOTE | 2017-07-24 12:03 | NUR ---
PATIENT REFUSED TO LET ME TAKE HIS BGM. HE STATED HE WASN'T READY TO EAT LUNCH AND HE WILL CHECK IT WHEN HE IS READY. ADVISED PATIENT TO LET ME KNOW. ALSO MEDICATED PATIENT WITH PO VALIUM FOR ANXIETY
--- NOTE | 2017-07-24 12:57 | NUR ---
PATIENT STATES MEDICATION EFFECTIVE
--- NOTE | 2017-07-24 13:49 | NUR ---
PATIENT MEDICATED WITH PO OXY IR FOR PAIN IN HIS BUTTOCKS 04/15
--- NOTE | 2017-07-24 14:45 | NUR ---
PATIENT MEDICATED WITH PO NORCO FOR PAIN IN HIS BUTTOCKS. PATIENT STATES OXY NOT EFFECTIVE. CHANGED DRESSINGS ON PATIENTS WOUNDS. PATIENT TOLERATED WELL. PATIENT WAS BATHED. LINEN CHANGED. COLOSTOMY WAFER AND BAG CHANGED.
--- NOTE | 2017-07-24 15:45 | NUR ---
PATIENT STATES MEDICATION EFFECTIVE
[2017-07-24 16:00] VITALS: BP 100/69
--- NOTE | 2017-07-24 17:41 | NUR ---
PATIENT REFUSED TO DO BGM SO THAT I MAY MEDICATE HIM WITH INSULIN. REFUSED INSULIN.
[2017-07-24 20:00] VITALS: BP 86/59
--- NOTE | 2017-07-24 20:04 | NUR ---
PT. REQUESTED NORCO AND VALIUM AT THIS TIME. PRN MEDS GIVEN AT THIS TIME. WILL MONITOR FOR EFFECTIVENESS.
--- NOTE | 2017-07-24 20:30 | NUR ---
PT. STATED THAT PRN MEDS WERE EFFECTIVE AT THIS TIME.
--- NOTE | 2017-07-24 20:50 | NUR ---
PT. AWAKE, ALERT AND ORIENTED X 3 AT THIS TIME. PT. IN BED, CURRENTLY DENIES SOB, ON RA, DENIES CP. CALL LIGHT WITHIN REACH, BED IN LOWEST POSITION, WHEELS LOCKED. SEE SHIFT ASSESSMENT.
--- NOTE | 2017-07-24 23:40 | NUR ---
PT. REQUESTED NORCO FOR GENERALIZED PAIN 04/15. PRN MED ADM. AT THIS TIME. WILL MONITOR FOR EFFECTIVENESS.
[2017-07-25] VITALS: BP 105/66
--- NOTE | 2017-07-25 01:33 | NUR ---
PT. REQUESTED PRN OXYCODONE AT THIS TIME, PT. STATED PREVIOUS NORCO WAS NOT EFFECTIVE. WILL MONITOR FOR EFFECTIVENESS. GENERALIZED PAIN RATED 10/10 AT THIS TIME.
--- NOTE | 2017-07-25 02:30 | NUR ---
PT. STATED RELIEF OF PAIN AT THIS TIME.
--- NOTE | 2017-07-25 04:45 | NUR ---
@0435 PT. GIVEN VALIUM, @0457 PT. GIVEN NORCO PER REQUEST FOR AGITATION AND PAIN 03/15. WILL MONITOR EFFECTIVENESS.
--- NOTE | 2017-07-25 05:30 | NUR ---
PT. STATED RELIEF OF PAIN, RATED 3/10.
--- NOTE | 2017-07-25 06:19 | NUR ---
PT. CURRENTLY REFUSING BLOOD GLUCOSE AND IV FLUIDS. ATTEMPTED TO RE-START ORDERED NS @100, BUT PT. DID NOT WANT FLUIDS RUNNING.
[2017-07-25 07:15] LABS: BASO % 0.3 % (0.0-1.0); EOS # 0.1 10*3/uL (0.0-0.4); EOS % 1.2 % (1.0-4.0); HEMATOCRIT 25.8 % (42.0-52.0); HEMOGLOBIN 7.9 g/dl (14.0-18.0); LYMPH % 24.8 % (27.0-41.0); MEAN CELL VOLUME 78.9 fl (80.0-94.0); MEAN CORPUSCULAR HGB 24.2 pg (27.0-31.0); MEAN CORPUSCULAR HGB CONC 30.6 g/dl (33.0-37.0); MEAN PLATELET VOLUME 9.5 fl (9.6-12.3); MONO # 0.7 10*3/uL (0.1-1.0); MONO % 6.1 % (3.0-9.0); PLATELET COUNT AUTOMATED 375 10*3/uL (130-400); RED BLOOD COUNT 3.27 10*6/uL (4.50-5.90); RED CELL DISTRI WIDTH 17.6 % (0-14.5); WHITE BLOOD COUNT 11.9 10*3/uL (4.8-10.8)
[2017-07-25 07:24] LABS: BUN 16 mg/dl (7-24); CHLORIDE 100 mmol/L (98-107); POTASSIUM 4.4 mmol/L (3.5-5.1); SODIUM 135 mmol/L (136-145)
[2017-07-25 08:00] VITALS: BP 112/66
--- NOTE | 2017-07-25 10:00 | NUR ---
PT REQUESTED AND GIVEN NORCO FOR C/O GEN PAIN. WILL MONITOR / PT RATES PAIN 04/15
--- NOTE | 2017-07-25 10:08 | NUR ---
PT REFUSES TO HAVE DRESSINGS CHANGED TODAY, STATES " THEY WERE DONE YESTERDAY. NOT DOING IT TODAY " PT INSTRUCTED THAT THEY ARE ORDERED TO BE DONE EVERY DAY. PT CONT TO REFUSE WILL ATTEMPT LATER
--- NOTE | 2017-07-25 11:00 | NUR ---
PT REFUSED TO HAVE BLOOD SUGAR CHECKED
--- NOTE | 2017-07-25 11:00 | NUR ---
PT STATES THAT GENACO HELPED A LITTLE. WILL MONITOR
[2017-07-25 12:00] VITALS: BP 104/61
--- NOTE | 2017-07-25 13:46 | NUR ---
PT REQUESTED AND GIVEN OXY IR AND VALIUM . WILL MONITOR
--- NOTE | 2017-07-25 15:08 | NUR ---
PT CONTINUES TO REFUSE DRESSING CHANGES. AND REFUSING BLOOD SUGAR CHECKS. DR SUBRAMANIAN AND VADIM NOTIFIED
[2017-07-25 16:00] VITALS: BP 110/68
--- NOTE | 2017-07-25 16:00 | NUR ---
PT REFUSED TO HAVE BLOOD SUGAR CHECKED
--- NOTE | 2017-07-25 16:19 | NUR ---
PT REQUESTED AND GIVEN NORCO FOR C/O GEN PAIN. PT RATES PAIN 8/10. WILL MONITOR
--- NOTE | 2017-07-25 17:56 | NUR ---
PT STATES THAT [place] HELPED. WILL MONITOR
[2017-07-25 20:00] VITALS: BP 120/76
--- NOTE | 2017-07-25 21:31 | NUR ---
GAVE PATIENT PRN NORCO FOR COMPLAINT OF PAIN WILL REASSESS FOR EFFECTIVENESS OF MEDICTION SEE SHIFT ASSESSMENT
[2017-07-26] VITALS: BP 111/72
--- NOTE | 2017-07-26 01:38 | NUR ---
PATIENT DROPPED PILLS ON FLOOR CHINEDU GONZALEZ WITNESSED THE PILLS BEING DROPPED. CHARGE NURSE NOTIFED OF MEDICATION BEING DROPPED AND PATIENT REQUESTING NEW PILLS. PILLS DISPOSED IN SHARPS.
[2017-07-26 04:00] VITALS: BP 110/72
--- NOTE | 2017-07-26 07:43 | NUR ---
PATIENT REFUSING FOR BLOOD SUGARS TO BE CHECKED. PATIENT HAS REFUSED ALL TREATMENTS ALL SHIFT THE ONLY TREATMENTS PATIENT HAS AGREES TO OS TAKING OF PILLS
[2017-07-26 08:00] VITALS: BP 111/67
--- NOTE | 2017-07-26 11:30 | NUR ---
PT REFUSED BGM STATING "I DON'T DO IT AT HOME AND YOU AREN'T DOING EITHER!" PT ALSO STATES HE DOES NOT WANT DRESSINGS CHANGED UNTIL LATER TODAY.
[2017-07-26 12:00] VITALS: BP 110/72
[2017-07-26 16:00] VITALS: BP 103/59
--- NOTE | 2017-07-26 16:30 | NUR ---
PT REFUSING BGM. REFUSING DRESSING CHANGES AT THIS TIME WELL.
[2017-07-26 20:00] VITALS: BP 106/66
[2017-07-27] VITALS (7 sets, daily range): BP systolic 97–109; BP diastolic 59–69
--- NOTE | 2017-07-27 01:52 | NUR ---
PATIENT MEDICATED WITH VALIUM AND OXY IR PER PRN ORDER FOR C./O ANXIETY AND PAIN. RATED PAIN A 8/10 WITH 10 BEING THE WORST. SEE EMAR. REINFORCED USE OF CALL LIGHT.
--- NOTE | 2017-07-27 09:08 | NUR ---
AMY ATTEMPTED TO REACH ASTRID FROM [facility] BUT HER VM WAS FULL. AMY LEFT MESSAGE AT MAIN OFFICE TO HAVE SOMEONE CALL CONCERNING RESUMING SERVICES UPON DISCHARGE.
--- NOTE | 2017-07-27 10:30 | NUR ---
KO FROM [facility] INFORMING THAT PT WAS DISCHARGED WITH A 10 DAY NOTICE JUNE 18, 2017 AND [facility]ENC[facility] WILL NOT ACCEPT PT BACK.
--- NOTE | 2017-07-27 11:01 | NUR ---
PT SLEEPING EASILY AWAKENED. VITALS WNL. TOLERATED ROUTINE MEDICATIONS. PT STILL REFUSES BGM. TRIED TO ENCOURAGE PT TO ALLOW ME TO DO HIS DAILY DRESSING CHANGES. PT STATED "NOT NOW. I WILL BE READY FOR YOU TO DO IT AFTER LUNCH." ADMINISTERED PO NORCO FOR BACK PAIN RATED 8/10 AND PO VALIUM FOR ANXIETY. WILL MONITOR FOR EFFECTIVENESS. BED LOW. CALL MONTERO IN REACH.
--- NOTE | 2017-07-27 11:31 | NUR ---
AMY RECEIVED CALL FROM [facility]ST[facility] ([phone]). JAZ REPORTED THAT ELECTRIC WHEELCHAIR IS BROKE. CIELO HAS A COMPNAY TO FIX IT BUT IT CAN NOT BE DONE UNTIL PT IS DISCHARGED FROM HOSPITAL. SERVICES IN HOME ARE WITH [facility] WHO OPENED CASE THE DAY BEFORE PT WAS ADMITTED. PT HAS NO FAMILY OR FRIENDS IN THE AREA TO ASSIST WITH CARE. PT IS FROM [facility]. AMY INFORMED JAZ THAT IS LOOKING AT SENDING PT TO [facility] FOR [place]. PT IS REFSUING ALL CARE AT THIS TIME. AMY WILL KEEP [facility] INFORMED OF DISCHARGE PLANS.
--- NOTE | 2017-07-27 12:17 | NUR ---
SW SPOKE WITH PT CONCENRING DISCHARGE PLANS. SW ASKED IF PT WAS WILING TO GO TO [facility] IN [facility]. PT REFUSED. PT WANTS TO RETURN HOME WITH HOME HEALTH SERVICES. PT WANTS TO GET HIS WHEELCHAIR FIXED. AMY EXPLAINED THAT SHE SPOKE WITH ZACHARY BUCK. JAZ WILL SET UP FOR DURABLE MEDICAL PROVIDER TO FIX WHEELCHAIR ONCE PT IS HOME FROM [facility]. PROVIDER CANNOT FIX CHAIR WHILE PT IS IN THE HOSPITAL. PT WANTS [facility] TO CONTINUE HIS CARE AT HOME. SW ASKED PT WHY HE WAS REFUSING CARE. PT STATED THAT HE WAS NOT REFUSING CARE THAT THE NURSE WAS COMING AFTER LUNCH TO DO HIS DRESSING CHANGE. PT STATED THAT HE DOES NOT WANT TO THAT HE WANTS TO GET BETTER. SW STRESSED TOT HE PT THAT HE NEEDED TO TAKE HIS MEDICATIONS, LET THE STAFF DO BLODD SUGARS AND CHANGEE HIS DRESSING. PT SAID THAT HE WOULD. PT WANTS SW TO FIND OUT WHY HIS SERVICES WERE NOT SET UP RIGHT WHEN HE LEFT THE [facility]. SW INFORMED PT THAT SW CANNOT DO THAT DUE TO SW WAS NOT IN CHARGE OF THAT HOSPITAL STAY. SW WOULD MAKE SURE SERVICES ARE SET UP WHEN HE WAS DISCHARGE FROM THIS HOSPITAL STAY. PT REQUESTED A LIST OF DISTRIBUTION FIELD ENGINEER SO THAT HE CAN CHECK TO SEE IF HE HAS A CASE FOR NEGLECT WHEN HE LEFT THE [facility]. SW NOT SURE IF SHE HAS A LIST OF DISTRIBUTION FIELD ENGINEER. SW WILL MAKE THAT [facility] AND [facility] ARE AWARE OF DISCHARGE DATE.
[2017-07-27] MEDS ORDERED: Vitamin D PO (12:55)
--- NOTE | 2017-07-27 13:18 | NUR ---
AMY RECEIVED ORDER FOR HOME HEALTH SERVICES. AMY FAXED REFERRAL TO [facility] AND SPOKE WITH SHEKHAR ABOUT RESUMING SERVICES DUE TO DISCHARGE TODAY. AMY LEFT FOR [facility] THAT PT WAS BEING DISCHARGED TODAY AND [facility] WAS GOING TO RESUME SERVICES.
--- NOTE | 2017-07-27 15:00 | NUR ---
PT AGREED TO GET BATHED ALLOWED ME TO DO HIS DRESSING CHANGES. DR VERA NOTIFIED THAT PTS WOUND ON RIGHT HEEL BLEEDING ALOT AND TOP OF LEFT FOOT PURULENT DRAINAGE. DR VERA CAME TO FLOOR TO ASSESS WOUNDS. EDUCATED PT ON IMPORTANCE OF COMPLIANCE REGARDING HIS MEDICAL CARE. NO NEW ORDERS
--- NOTE | 2017-07-27 19:55 | NUR ---
PATIENT MEDICATED WITH VALIUM AND NORCO PER PRN ORDER FOR C/O PAIN AND ANXIETY. RATED PAIN A 7/10 WITH 10 BEING THE WORST. SEE EMAR. REINFORCED USE OF CALL LIGHT.
--- NOTE | 2017-07-27 20:45 | NUR ---
PATIENT ANXIOUS, WORRIED HE WILL NOT HAVE THE LINENS AND SUPPLIES TO CARE FOR SELF ON DISCHARGE. TOLD PATIENT HE WILL HAVE TO DISCUSS THIS WITH MAGAZINE WORKER WHEN THEY HELP SET HIM UP WITH WHEEL CHAIR AND OTHER SUPPLIES HE MAY NEED ON DISCHARGE, IF THEY CAN.
[2017-07-28] VITALS: BP 83/53
--- NOTE | 2017-07-28 05:29 | NUR ---
PATIENT MEDICATED WITH VALIUM AND NORCO PER PRN ORDER FOR C/ ANXIETY AND PAIN. RATED PAIN A 10/10 WITH 10 BEING THE WORST. SEE EMAR. REINFORCED USE OF CALL LIGHT.
--- NOTE | 2017-07-28 06:12 | NUR ---
PATIENT MEDICATED WITH OXY 20 MG PO PRN ORDER FOR C/O PAIN. PATIENT RATED PAIN A 7/10 WITH 10 BEING THE WORST. SEE EMAR. REINFORCED USE OF CALL LIGHT. PATIENT ALSO REFUSED AM LAB DRAWS.
[2017-07-28 08:00] VITALS: BP 92/52; BP 96/54
[2017-07-28 10:00] VITALS: BP 92/52
--- NOTE | 2017-07-28 11:12 | NUR ---
AMY ARRANGED TRANSPORATION WITH [facility] FOR DISCHARGE HOME FOR 1PM. SW NOTIFED NUT GRINDER OF DISCHARGE TIME AND COMPANY.
--- NOTE | 2017-07-28 11:13 | NUR ---
AMY SPOKE WITH [facility] THAT INFORM HER THAT PT WAS BEING DISCHARGED TODAY. CIELO REQUESTED DISCHARGE INFORMATION BE FAXED TO [phone]. CIELO TRYING TO GET IN TOUCH WITH [employer] TO REPAIR WHEELCHAIR TODAY.
--- NOTE | 2017-07-28 11:22 | NUR ---
AMY FAXED HISTORY & PHYSICAL, CONSULTS, MEDICATION LIST, AND DISCHARGE SUMMERY TO [facility] SE[facility]ST[facility] FAX [phone].
--- NOTE | 2017-07-28 13:50 | NUR ---
SPOKE WITH DAVID ROGERS FROM CASE MANAGEMENT. SHE SAID SHE WAS ABLE TO GET A COMPANY TO COME TO PT'S HOUSE AND FIX THE WHEELCHAIR TODAY. HENRIK FROM [facility] WILL MEET WITH PT TODAY AFTER DC AT HOME.
--- NOTE | 2017-07-28 14:00 | NUR ---
Discharge instructions reviewed with patient. Patient receptive and verbalizes understanding. Follow-up care arranged. Written instructions given to patient. JENIFER FLOWERS
== END 2017-07-28 14:00 | disposition home health service (06) | DRG 871 ==
LOC: ED 04:32 → 5E 05:48 → EDHOLD 05:48 → 5E 05:54
PROVIDERS: Emergency Medicine Emergency Medical Services; Family Medicine; Hospitalist; Internal Medicine; ADMIT Internal Medicine
PROC: B246ZZ4 Ultrasonography of Right and Left Heart, Transesophageal (ICD-10-PCS; principal; 2017-07-23)
DX: A41.9 Sepsis, unspecified organism (principal); L89.154 Pressure ulcer of sacral region, stage 4; I26.99 Other pulmonary embolism without acute cor pulmonale; B37.6 Candidal endocarditis; G93.41 Metabolic encephalopathy; E43 Unspecified severe protein-calorie malnutrition; J18.9 Pneumonia, unspecified organism; G82.20 Paraplegia, unspecified; E87.1 Hypo-osmolality and hyponatremia; N39.0 Urinary tract infection, site not specified; M86.60 Other chronic osteomyelitis, unspecified site; Z68.1 Body mass index [BMI] 19.9 or less, adult; E87.8 Other disorders of electrolyte and fluid balance, not elsewhere classified; F14.10 Cocaine abuse, uncomplicated; E87.5 Hyperkalemia; D50.9 Iron deficiency anemia, unspecified; E86.0 Dehydration; L98.419 Non-pressure chronic ulcer of buttock with unspecified severity; D47.3 Essential (hemorrhagic) thrombocythemia; E53.8 Deficiency of other specified B group vitamins; E55.9 Vitamin D deficiency, unspecified; Z53.29 Procedure and treatment not carried out because of patient's decision for other reasons; Z60.2 Problems related to living alone; W05.0XXA Fall from non-moving wheelchair, initial encounter; L98.492 Non-pressure chronic ulcer of skin of other sites with fat layer exposed; R65.20 Severe sepsis without septic shock; Z72.0 Tobacco use; Z71.6 Tobacco abuse counseling; Z88.6 Allergy status to analgesic agent; Z88.8 Allergy status to other drugs, medicaments and biological substances; Z79.2 Long term (current) use of antibiotics; Z79.84 Long term (current) use of oral hypoglycemic drugs; Z79.899 Other long term (current) drug therapy; Y93.89 Activity, other specified; Y92.89 Other specified places as the place of occurrence of the external cause; Y99.8 Other external cause status; Z93.3 Colostomy status; Z93.2 Ileostomy status

== ENCOUNTER 2017-08-04 15:42 | Inpatient (IN) | payer MEDICAID ==
[~2017-08-04] VITALS: Ht 175.3 cm; Wt 64.2 kg
[2017-08-04 15:42] VITALS: BP 149/84
[~2017-08-04 15:42] MED LIST changes: +FLUONAZOLE200 M1 PO; +METFORMIN HCL1000 M1 PO; +OMNICEF300 MG PO; +Vitamin D PO
--- NOTE | 2017-08-04 16:01 | NUR ---
REPORT TO ÁNGEL TAVARES RN
[2017-08-04 16:58] LABS: ALKALINE PHOSPHATASE 210 U/L (45-117); BUN 12 mg/dl (7-24); CHLORIDE 101 mmol/L (98-107); CREATININE 0.86 mg/dL (0.70-1.30); LIPASE 177 U/L (73-393); POTASSIUM 4.4 mmol/L (3.5-5.1); SGOT/AST 12 IU/L (3-35); SGPT/ALT 8 U/L (12-78); SODIUM 135 mmol/L (136-145); TOTAL PROTEIN 7.4 gm/dL (6.4-8.2)
[2017-08-04 17:02] LABS: TROPONIN I < 0.015 ng/ml (<0.045)
--- NOTE | 2017-08-04 17:17 | NUR ---
MEDICATED WITH PERCOCET ORDERED FOR PAIN IN HIS COCCYX. MARIA LUISA GANDHI RN
[2017-08-04] MEDS ORDERED: CYCLOBENZAPRINE10 MG PO (18:19)
[2017-08-04] MEDS ORDERED: LANTUS SOL100 UNIT/1 SQ (18:21)
--- NOTE | 2017-08-04 18:28 | NUR ---
SPOKE WITH THE PHARMACIST FROM [facility] & MED REC IS UP TO DATE.
--- NOTE | 2017-08-04 19:10 | NUR ---
NURSE TO NURSE REPORT GIVEN TO THIS RN.ATTEMPT BEING MADE AT THIS TIME BY MEDICAL STAFF FOR CENTRAL LINE PLACEMENT.PT AWAITING TRANSFER TO [facility].
--- NOTE | 2017-08-04 19:36 | NUR ---
ASSISTED DR. THOMPSON WITH PLACING A CENTRAL LINE.
[2017-08-04 20:03] LABS: BASO % 0.2 % (0.0-1.0); EOS % 0.3 % (1.0-4.0); HEMATOCRIT 28.6 % (42.0-52.0); HEMOGLOBIN 8.6 g/dl (14.0-18.0); LYMPH % 17.6 % (27.0-41.0); MEAN CELL VOLUME 78.8 fl (80.0-94.0); MEAN CORPUSCULAR HGB 23.7 pg (27.0-31.0); MEAN CORPUSCULAR HGB CONC 30.1 g/dl (33.0-37.0); MEAN PLATELET VOLUME 9.7 fl (9.6-12.3); MONO # 1.1 10*3/uL (0.1-1.0); MONO % 9.3 % (3.0-9.0); NEUT # 8.4 10*3/uL (2.3-7.9); NEUT % 72.3 % (47.0-73.0); PLATELET COUNT AUTOMATED 463 10*3/uL (130-400); RED BLOOD COUNT 3.63 10*6/uL (4.50-5.90); RED CELL DISTRI WIDTH 17.4 % (0-14.5); WHITE BLOOD COUNT 11.6 10*3/uL (4.8-10.8)
[2017-08-04 20:13] LABS: INTERNATIONAL NORM RATIO 1.1 (2.0-3.5)
--- NOTE | 2017-08-04 20:46 | NUR ---
THIS RN SPOKE WITH RADIOLOGY REGARDING PT CHEST XRAYS.INFORMED THEY BELIEVE THEY WERE ALL COMPLETED BUT DONE LATE AND SHOULD BE RESULTING SOON.
[2017-08-04 21:00] VITALS: BP 107/65
[2017-08-04 21:00] LABS: BILIRUBIN NEGATIVE (NEGATIVE); BLOOD 1+ (NEGATIVE); CLARITY CLOUDY (CLEAR); COLOR YELLOW (YELLOW); GLUCOSE NEGATIVE (NEGATIVE); KETONE NEGATIVE (NEGATIVE); LEUKO ESTERASE 3+ (NEGATIVE); NITRITE POSITIVE (NEGATIVE); UROBILINOGEN 0.2 E.U./dl (0.2-1.0)
--- NOTE | 2017-08-04 21:00 | NUR ---
A 47, admitted to [facility], under the services of POPEYE Parish DO with a diagnosis of SEPSIS. Chief complaint is FEVER. Patient arrived via ambulance from ER. Monitor applied. Initial assessment completed. Vital signs taken and recorded. POPEYE PARISH DO notified of admission to the unit. Orders received. See assessment for past medical history, medications and allergies. Patient and/or family oriented to unit. [facility] visitation policy reviewed. Clothing/patient valuable form completed. JULIO CESAR RODRIGUEZ
[2017-08-04 21:01] VITALS: BP 153/85
[2017-08-04 21:09] LABS: BACTERIA 4+; WBC 51-100 wbc/hpf (0-5)
[2017-08-04 21:12] LABS: URINE AMPHETAMINES < 1000 (1000ng/ml); URINE BARBITURATES < 200 (200ng/ml); URINE BENZODIAZEPINES > 200 (200ng/ml); URINE CANNABINOIDS (THC) > 50 (50ng/ml); URINE COCAINE < 300 (300ng/ml); URINE METHADONE < 300 (300ng/ml); URINE OPIATES < 300 (300ng/ml)
[2017-08-04 21:13] LABS: URINE PHENCYCLIDINE < 25 (25ng/ml)
--- NOTE | 2017-08-04 22:50 | NUR ---
OLD DRESSING TAKEN OFF SACRUM/BUTTOCK AND PICS TAKEN AND REPLACED DRESSINGS. DRESSING ON BILATER FEET/ANKLES WERE DATED 07/28/17, YELLOW SOCKS HAD TO BE CUT FROM WOUND. PICS TAKEN AND DRESSINGS REAPPLIED.
[2017-08-05] VITALS (7 sets, daily range): BP systolic 92–117; BP diastolic 56–88
[2017-08-05 04:39] LABS: BASO % 0.3 % (0.0-1.0); EOS # 0.1 10*3/uL (0.0-0.4); HEMOGLOBIN 7.1 g/dl (14.0-18.0); LYMPH # 2.9 10*3/uL (1.3-4.4); LYMPH % 32.4 % (27.0-41.0); MEAN CELL VOLUME 79.7 fl (80.0-94.0); MEAN CORPUSCULAR HGB 23.6 pg (27.0-31.0); MEAN CORPUSCULAR HGB CONC 29.6 g/dl (33.0-37.0); MEAN PLATELET VOLUME 9.4 fl (9.6-12.3); MONO % 10.7 % (3.0-9.0); NEUT % 55.2 % (47.0-73.0); PLATELET COUNT AUTOMATED 351 10*3/uL (130-400); RED BLOOD COUNT 3.01 10*6/uL (4.50-5.90); RED CELL DISTRI WIDTH 17.5 % (0-14.5)
--- NOTE | 2017-08-05 05:49 | NUR ---
PATIENT HAD NO COMPLAINTS THROUGHTOUT THE NIGHT, NO DISTRESS NOTED. VITAL SIGNS STABLE.
[2017-08-05 05:59] LABS: ALBUMIN 1.6 gm/dl (3.1-4.5); ALKALINE PHOSPHATASE 165 U/L (45-117); BUN 10 mg/dl (7-24); CHLORIDE 103 mmol/L (98-107); CHOLESTEROL 110 mg/dL (<200); HDL CHOLESTEROL 24 mg/dl (40-60); LDL CHOLESTEROL 64 mg/dL (9-159); PHOSPHOROUS 2.7 mg/dL (2.5-4.9); SGOT/AST 5 IU/L (3-35); SGPT/ALT 8 U/L (12-78); SODIUM 137 mmol/L (136-145); TOTAL PROTEIN 5.6 gm/dL (6.4-8.2); TRIGLYCERIDES 110 mg/dl (<150); VLDL CHOLESTEROL 22 mg/dL (6-40)
--- NOTE | 2017-08-05 10:15 | NUR ---
Dr. Tyler in to [facility]. orders recieved.
--- NOTE | 2017-08-05 11:57 | NUR ---
Wound care team in and dressings to all wounds were completed. See Wound care note.
--- NOTE | 2017-08-05 12:50 | NUR ---
Not awakened for pain meds.
--- NOTE | 2017-08-05 15:03 | NUR ---
Dr. iSngh and aware of consult for wounds.
--- NOTE | 2017-08-05 15:08 | NUR ---
[facility] RO II [id number] Please refer to the physician's history and physical for past medical history, comorbid conditions, and allergies. Diagnosis: INFECTED STASIS ULCER SEPSIS SACRAL DECUBITUS UL David Score: 9,VERY HIGH RISK WOUND DESCRIPTIONS: Location of the wound: sacrum Type of wound: stage 4 Thickness: Full Size: 9.5cm x 19cm x 2.5cm Tunneling: none Undermining: none Sinus Tract: none Presence of Exudate: Sanguineous Amount: Heavy Color: Yellow Odor: Foul Periwound Skin Appearance: Normal Wound edges: approximated Pain (associated with wound): patient denied at time of assessment' How does patient state this happened? patient unsure how this happened Location of the wound: right buttocks Type of wound: stage 4 Thickness: Full Size: 7cm x 12cm x 2.4cm Tunneling: none Undermining: none Sinus Tract: none Presence of Exudate: Sanguineous Amount: Heavy Color: Red Odor: Foul Periwound Skin Appearance: Normal Wound edges: approximated Pain (associated with wound): patient denied at time of assessment How does patient state this happened? patient is unsure how this happened Location of the wound: left buttocks Type of wound: stage 4 Thickness: Full Size: 4cm x 6.5cm x 1 cm Tunneling: none Undermining: none Sinus Tract: none Presence of Exudate: Sanguineous Amount: Moderate Color: Red Odor: Foul Periwound Skin Appearance: Normal Wound edges: approximated Pain (associated with wound): patient denied at time of assessment How does patient state this happened? patient is unsure how this happened Location of the wound: right heel Type of wound: stage 4 Thickness: Full Size: 6.5cm 8cm x 0.1cm Tunneling: none Undermining: none Sinus Tract: none Presence of Exudate: Sanguineous Amount: Moderate Color: Red Odor: None Periwound Skin Appearance: Normal Wound edges: approximated Pain (associated with wound): patient denied at time of assessment How does patient state this happened? patient is unsure how this happened Location of the wound: right great toe Type of wound: stage 4 Thickness: Full Size: 4cm x 2.7cm x 0.1cm Tunneling: none Undermining: none Sinus Tract: none Presence of Exudate: Sanguineous Amount: Moderate Color: Red Odor: None Periwound Skin Appearance: Normal Wound edges: approximated Pain (associated with wound): patient denied at time of assessment How does patient state this happened? patient is unsure how this happened Location of the wound: right second tow Type of wound: stage 2 Thickness: Partial Size: 1.7cm x 1cm x 0.1cm Tunneling: none Undermining: none Sinus Tract: none Presence of Exudate: Sanguineous Amount: Light Color: Red Odor: None Periwound Skin Appearance: Normal Wound edges: approximated Pain (associated with wound): patient denied at time of assessment How does patient state this happened? patient is unsure how this happened Location of the wound: left ankle Type of wound: stage 4 Thickness: Full Size: 3cm x 2cm x 0.1cm Tunneling: none Undermining: none Sinus Tract: none Presence of Exudate: Sanguineous Amount: Light Color: Red Odor: None Periwound Skin Appearance: Normal Wound edges: approximated Pain (associated with wound): patient denied at time of assessment How does patient state this happened? patient is unsure how this happened Location of the wound: left lateral foot Type of wound: stage 2 Thickness: Partial Size: 2.4cm x 2.5cm x 0.1cm Tunneling: none Undermining: none Sinus Tract: none Presence of Exudate: Sanguineous Amount: Light Color: Red Odor: None Periwound Skin Appearance: Normal Wound edges: approximated Pain (associated with wound): patient denied at time of assessment How does patient state this happened? patient is unsure how this happened Location of the wound: left heel Type of wound: unstageable Thickness: Size: 0.6cm x 0.5cm x 0.1cm Tunneling: none Undermining: none Sinus Tract: none Presence of Exudate: none Amount: None Color: Red Odor: None Periwound Skin Appearance: Normal Wound edges: approximated Pain (associated with wound): patient denied at time of assessment How does patient state this happened? patient is unsure how this happened Location of the wound: left great tow Type of wound: stage 4 Thickness: Full Size: 2cm x 2.4cm x 0.1cm Tunneling: none Undermining: none Sinus Tract: none Presence of Exudate: Serous Amount: None Color: Red Odor: None Periwound Skin Appearance: Normal Wound edges: approximated Pain (associated with wound): patient denied at time of assessment How does patient state this happened? patient is unsure how this happened Surface the patient is resting on: Isoflex SKIN PREVENTION RECOMMENDATION: 1. Pressure redistribution support surface as appropriate 2. Elevate heels 3. Remove boots/TEDS every shift and reapply 4. Head of bed 30 degrees as tolerated 5. Assess nutrition and hydration 6. Manage moisture 7. Avoid the use of containment devices while in bed 8. Use absorptive products on surfaces limit layers of linens on bed 9. Turn and reposition every 1-2 hours in bed and every 1 hour in chair as tolerated 10. Weight shifts every 15 minutes while up in chair 11. Offloading with pillows or device to keep heels elevated off bed 12. Monitor skin at least every shift 13. Inspect under medical devices twice a day WOUND TREATMENT RECOMMENDATIONS: Cleanse right buttocks, left buttocks, sacrum with NSS and apply sureprep to surrounding wound apply maxorb II to all wounds and cover with ABD pad and secure with medifix tape daily and prn soiling. Cleanse right great toe and right second toe with NSS and apply sureprep to surrounding wound apply therahoney to wound bed cover with 4x4 and secure with kerlix. Cleanse right heel with NSS apply sureprep to surrounding wound. Apply therahoney and maxorb II ABD pad secure with kerlix. Cleanse left lateral foot and left ankle with NSS apply sureprep to surrounding wound apply therahoney and optifoam gentle and secure with kerlix. Cleanse left heel with NSS apply sureprep to surrounding wound and apply therahoney and optifoam gentle and secure with kerlix.
--- NOTE | 2017-08-05 16:43 | NUR ---
Urostomy bag wafer and flange changed to accomodate alejo bag. Pt, declined to have colostomy emptied. stating " it is fine" Solid stool present in bag. declined insulin coverage at 1130. but accepted coverage for 1600.
[2017-08-05 20:01] LABS: BASO % 0.4 % (0.0-1.0); EOS # 0.2 10*3/uL (0.0-0.4); EOS % 1.5 % (1.0-4.0); HEMATOCRIT 27.9 % (42.0-52.0); HEMOGLOBIN 8.5 g/dl (14.0-18.0); LYMPH # 2.7 10*3/uL (1.3-4.4); LYMPH % 25.3 % (27.0-41.0); MEAN CELL VOLUME 79.3 fl (80.0-94.0); MEAN CORPUSCULAR HGB 24.1 pg (27.0-31.0); MEAN CORPUSCULAR HGB CONC 30.5 g/dl (33.0-37.0); MEAN PLATELET VOLUME 9.6 fl (9.6-12.3); NEUT # 6.8 10*3/uL (2.3-7.9); NEUT % 63.2 % (47.0-73.0); PLATELET COUNT AUTOMATED 353 10*3/uL (130-400); RED BLOOD COUNT 3.52 10*6/uL (4.50-5.90); RED CELL DISTRI WIDTH 16.9 % (0-14.5); WHITE BLOOD COUNT 10.8 10*3/uL (4.8-10.8)
[2017-08-06] VITALS: BP 96/56
--- NOTE | 2017-08-06 00:52 | NUR ---
PATIENT REFUSED TO LET STAFF HELP BATHE, PATIENT DID WASH SELF OFF, STATED HIS BANDAGES WERE CHANGED AND DIDNT WANT THEM MESSED WITH. PATIENT ALSO STATED THAT THE BED WAS FINE, BUT DID ALLOW US TO CHANGE PILLOW CASES.
[2017-08-06 04:00] VITALS: BP 136/87
[2017-08-06 05:54] LABS: BUN 8 mg/dl (7-24); CHLORIDE 104 mmol/L (98-107); CREATININE 0.56 mg/dL (0.70-1.30); POTASSIUM 3.8 mmol/L (3.5-5.1); SODIUM 138 mmol/L (136-145); VANCOMYCIN TROUGH 11.1 ug/mL (10-20)
[2017-08-06 06:28] LABS: BASO % 0.3 % (0.0-1.0); EOS # 0.3 10*3/uL (0.0-0.4); EOS % 2.7 % (1.0-4.0); HEMATOCRIT 27.5 % (42.0-52.0); HEMOGLOBIN 8.3 g/dl (14.0-18.0); LYMPH # 2.5 10*3/uL (1.3-4.4); LYMPH % 26.9 % (27.0-41.0); MEAN CELL VOLUME 79.9 fl (80.0-94.0); MEAN CORPUSCULAR HGB 24.1 pg (27.0-31.0); MEAN CORPUSCULAR HGB CONC 30.2 g/dl (33.0-37.0); MONO # 0.8 10*3/uL (0.1-1.0); MONO % 9.2 % (3.0-9.0); NEUT # 5.5 10*3/uL (2.3-7.9); NEUT % 60.4 % (47.0-73.0); PLATELET COUNT AUTOMATED 323 10*3/uL (130-400); RED BLOOD COUNT 3.44 10*6/uL (4.50-5.90); RED CELL DISTRI WIDTH 16.9 % (0-14.5); WHITE BLOOD COUNT 9.2 10*3/uL (4.8-10.8)
[2017-08-06 08:00] VITALS: BP 100/64
--- NOTE | 2017-08-06 09:17 | NUR ---
States was up all night. Re-positioning encouraged. assisted to turn. AM meds given. Took full breakfast well.
--- NOTE | 2017-08-06 10:25 | NUR ---
Called into room by pt. who is drowsy, stating that he would like one dose of dilaudid, states he doesn't want to sit around taking pills all the time, just want to be pain free. Informed of VS changes and need to hold off on pain meds at this time. agreeable .
--- NOTE | 2017-08-06 11:47 | NUR ---
SW SPOKE WITH PT ABOUT CONSIDERING GOING TO A LTAC. PT REFUSED LTAC. PT SAID HE HAD TO COME BACK TO HOSPITAL DUE TO NOT GETTING AN ORAL ANTIBIOTIC UPON DISHCARGE. PT STATED THAT HE HAS NURSES THROUGH [facility] THAT CAN TAKE CARE OF HIS WOUNDS. PT'S WHEELCHAIR WAS FIXED AFTER LAST ADMISSION. SW WILL CONTACT [facility] TO RESUME SERVICS ONCE PT IS DICAHRGED.
[2017-08-06 11:58] VITALS: BP 99/64
[2017-08-06 16:00] VITALS: BP 100/57
--- NOTE | 2017-08-06 16:01 | NUR ---
Resting comfortably most of day. dr. Vasquez in and viewed sacral wounds. no new orders. wound w/ moderate amt drainage on old dressings. changed. bed linen cjhanged. Valium given prior to dressing change at pt. request. order for transfer to telemetry recieved.
--- NOTE | 2017-08-06 18:01 | NUR ---
Colostomy full w/ hard formed stool. removed and replaced.
--- NOTE | 2017-08-06 18:53 | NUR ---
Transferred to [facility] via bed with belongings. Report to next shift.
[2017-08-06 20:00] VITALS: BP 123/73
[2017-08-07] VITALS: BP 120/74
[2017-08-07 05:55] LABS: ALBUMIN 1.5 gm/dl (3.1-4.5); ALKALINE PHOSPHATASE 162 U/L (45-117); BUN 6 mg/dl (7-24); CHLORIDE 101 mmol/L (98-107); CREATININE 0.54 mg/dL (0.70-1.30); PHOSPHOROUS 2.6 mg/dL (2.5-4.9); POTASSIUM 3.3 mmol/L (3.5-5.1); SGOT/AST 6 IU/L (3-35); SGPT/ALT 6 U/L (12-78); SODIUM 139 mmol/L (136-145); TOTAL PROTEIN 5.7 gm/dL (6.4-8.2)
[2017-08-07 05:56] LABS: VANCOMYCIN TROUGH 16.8 ug/mL (10-20)
[2017-08-07 05:59] LABS: BASO % 0.4 % (0.0-1.0); EOS # 0.2 10*3/uL (0.0-0.4); EOS % 2.2 % (1.0-4.0); HEMATOCRIT 27.5 % (42.0-52.0); HEMOGLOBIN 8.3 g/dl (14.0-18.0); LYMPH # 2.7 10*3/uL (1.3-4.4); LYMPH % 26.8 % (27.0-41.0); MEAN CORPUSCULAR HGB 23.9 pg (27.0-31.0); MEAN CORPUSCULAR HGB CONC 30.2 g/dl (33.0-37.0); MEAN PLATELET VOLUME 9.5 fl (9.6-12.3); MONO # 0.8 10*3/uL (0.1-1.0); MONO % 7.9 % (3.0-9.0); NEUT # 6.2 10*3/uL (2.3-7.9); PLATELET COUNT AUTOMATED 318 10*3/uL (130-400); RED BLOOD COUNT 3.48 10*6/uL (4.50-5.90); RED CELL DISTRI WIDTH 17.2 % (0-14.5); WHITE BLOOD COUNT 9.9 10*3/uL (4.8-10.8)
[2017-08-07 08:00] VITALS: BP 130/79
--- NOTE | 2017-08-07 08:20 | NUR ---
DR LOZANO IN TO SEE PT AT THIS TIME.
[2017-08-07 12:00] VITALS: BP 118/76
--- NOTE | 2017-08-07 13:56 | NUR ---
IN TO PERFORM WOUND CARE AT THIS TIME, PT STATES THAT ONLY THE DRESSING TO HIS SCARUM, HIP, AND BUTTOCK NEED CHANGED BECAUSE SOMEONE CHANGED THE DRESSING TO HIS FEET YESTERDAY. EXPLAINED TO PT THAT THERE WAS NO DOCUMENTATION FOR THE FEET DRESSING FOR YESTERDAY, PT WAS ADAMANT THEY DID NOT NEED TO BE REMOVED BECAUSE THEY WERE DONE YESTERDAY, NO DATE FOUND ONF DRESSINGS. WOUND CARE PERFORMED TO BUTTOCKS, SACRUM, AND HIP PER ORDER. MODERATE AMOUNT OF PURULENT DRAINAGE NOTED TO OLD DRESSINGS. UPON COMPLETION OF WOUND CARE, THIS NURSE WAS GOING TO PUT CLEAN ABSORBA PAD UNDER PT THAT WAS ON BEDSIDE TABLE, PT STARTS GETTING ARGUMENTATIVE STATING HE WAS SAVING THESE SUPPLIES, EXPLAINED TO PT THAT THE HOSPITAL IS NOT ABLE TO PROVIDE HIM HIS OWN PERSONAL SUPPLIES. PT THEN STATES "WHATEVER, IM NOT GOING TO ARGUE ABOUT NO STUPID FU ALL PAD." PT TOLERATED DRESSING CHANGE WELL. CALL LIGHT WITHIN REACH.
[2017-08-07 16:00] VITALS: BP 118/69
[2017-08-07 20:00] VITALS: BP 119/70
[2017-08-08] VITALS: BP 112/73
--- NOTE | 2017-08-08 06:10 | NUR ---
PATIENT MEDICATED WITH PRN ZOFRAN ORDERED FOR C/O NAUSEA.
[2017-08-08 06:21] LABS: BASO % 0.3 % (0.0-1.0); EOS # 0.2 10*3/uL (0.0-0.4); EOS % 1.9 % (1.0-4.0); HEMATOCRIT 27.3 % (42.0-52.0); HEMOGLOBIN 8.4 g/dl (14.0-18.0); LYMPH % 28.3 % (27.0-41.0); MEAN CELL VOLUME 78.9 fl (80.0-94.0); MEAN CORPUSCULAR HGB 24.3 pg (27.0-31.0); MEAN CORPUSCULAR HGB CONC 30.8 g/dl (33.0-37.0); MEAN PLATELET VOLUME 9.9 fl (9.6-12.3); MONO # 0.9 10*3/uL (0.1-1.0); MONO % 8.6 % (3.0-9.0); NEUT # 6.4 10*3/uL (2.3-7.9); NEUT % 60.3 % (47.0-73.0); PLATELET COUNT AUTOMATED 351 10*3/uL (130-400); RED BLOOD COUNT 3.46 10*6/uL (4.50-5.90); RED CELL DISTRI WIDTH 17.5 % (0-14.5); WHITE BLOOD COUNT 10.5 10*3/uL (4.8-10.8)
[2017-08-08 06:51] LABS: ALBUMIN 1.6 gm/dl (3.1-4.5); ALKALINE PHOSPHATASE 150 U/L (45-117); BUN 8 mg/dl (7-24); CHLORIDE 101 mmol/L (98-107); CREATININE 0.44 mg/dL (0.70-1.30); POTASSIUM 3.3 mmol/L (3.5-5.1); SGOT/AST 4 IU/L (3-35); SODIUM 138 mmol/L (136-145); TOTAL PROTEIN 5.7 gm/dL (6.4-8.2)
[2017-08-08 06:52] LABS: SGPT/ALT < 6 U/L (12-78)
[2017-08-08 08:00] VITALS: BP 93/41
--- NOTE | 2017-08-08 08:00 | NUR ---
PT AWAKE ASSESSMENT COMPLETE. NO PT COMPLAINTS AT THIS TIME. REQUESTED TO DO DRESSING CHANGES AND PT STATED HE PREFERS TO WAIT UNTIL AFTER LUNCH.
--- NOTE | 2017-08-08 08:15 | NUR ---
CALLED DR LAWRENCE. LEFT INFORMATION REGARDING NEW PT CONSULT. WAITING GRAVITY PROSPECTING OPERATOR HELPER BACK.
--- NOTE | 2017-08-08 09:55 | NUR ---
DR LAWRENCE CALLED. SHE SPOKE TO DR LOZANO REGARDING CONSULT.
--- NOTE | 2017-08-08 15:00 | NUR ---
PT AWAKE. ROUTINE MEDICATIONS TOLERATED. REQUESTED TO CHANGE PTS DRESSINGS. PT STATES HE WOULD LIKE TO WAIT UNTIL AFTER HIS NEXT DOSE OF PAIN MEDICATION.
[2017-08-08 16:00] VITALS: BP 152/95
--- NOTE | 2017-08-08 19:48 | NUR ---
SCHEDULED PAIN MEDICATION GIVEN. PAIN IS RATED AT 9 OUT OF 10, LOCATED IN THE BACK AND NECK AND DESCRIBED CONSTANT AND, "IT HURTS". WILL CONTINUE TO MONITOR. PRN ZOFRAN GIVEN FOR NAUSEA PER PTs REQUEST. WILL CONTINUE TO MONITOR.
--- NOTE | 2017-08-08 19:51 | NUR ---
PT IN BED, SITTING UP AND WATCHING TV. PT IS COOPERATIVE AT THIS TIME. TOLERATED MEDICATIONS WELL. WILL CONTINUE TO MONITOR.
[2017-08-08 20:00] VITALS: BP 122/77
--- NOTE | 2017-08-08 20:32 | NUR ---
PER PT, PAIN IS STILL RATED AT 9 OUT OF 10. MEDICATOIN WAS INEFFECTVE FOR PAIN. PT REFUSED OTHER INTERVENTIONS AT THIS TIME. PER PT, ZOFRAN WAS EFFECTIVE FOR NAUSEA. PT REPORTS DECREASED NAUSEA.
[2017-08-09] VITALS: BP 110/69
--- NOTE | 2017-08-09 02:30 | NUR ---
PT COMPLAINS OF INSOMNIA. RN NOTIFIED DR FIERRO AND ORDERD RESTORIL.
[2017-08-09 06:52] LABS: BASO % 0.4 % (0.0-1.0); EOS # 0.2 10*3/uL (0.0-0.4); HEMATOCRIT 26.7 % (42.0-52.0); HEMOGLOBIN 7.9 g/dl (14.0-18.0); LYMPH # 2.6 10*3/uL (1.3-4.4); LYMPH % 27.8 % (27.0-41.0); MEAN CELL VOLUME 80.4 fl (80.0-94.0); MEAN CORPUSCULAR HGB 23.8 pg (27.0-31.0); MEAN CORPUSCULAR HGB CONC 29.6 g/dl (33.0-37.0); MEAN PLATELET VOLUME 9.2 fl (9.6-12.3); MONO # 0.8 10*3/uL (0.1-1.0); MONO % 8.7 % (3.0-9.0); NEUT # 5.6 10*3/uL (2.3-7.9); NEUT % 60.7 % (47.0-73.0); PLATELET COUNT AUTOMATED 317 10*3/uL (130-400); RED BLOOD COUNT 3.32 10*6/uL (4.50-5.90); RED CELL DISTRI WIDTH 17.7 % (0-14.5); WHITE BLOOD COUNT 9.2 10*3/uL (4.8-10.8)
[2017-08-09 07:06] LABS: ALBUMIN 1.6 gm/dl (3.1-4.5); ALKALINE PHOSPHATASE 168 U/L (45-117); BUN 11 mg/dl (7-24); CHLORIDE 102 mmol/L (98-107); CREATININE 0.52 mg/dL (0.70-1.30); POTASSIUM 4.1 mmol/L (3.5-5.1); SGOT/AST < 3 IU/L (3-35); SGPT/ALT 7 U/L (12-78); SODIUM 139 mmol/L (136-145); TOTAL PROTEIN 5.7 gm/dL (6.4-8.2)
[2017-08-09 08:00] VITALS: BP 131/89
--- NOTE | 2017-08-09 08:51 | NUR ---
Contacted [facility], patient is still active with this home health company. Faxed order and clincals.
--- NOTE | 2017-08-09 11:30 | NUR ---
PT BSG 155. PT REFUSES INSULIN COVERAGE AT THIS TIME. CALL LIGHT IN REACH. WILL MONITOR
[2017-08-09 12:00] VITALS: BP 135/83
--- NOTE | 2017-08-09 14:29 | NUR ---
WOUND CARE COMPLETED TO PT BILAT BUTTOCK WOUNDS. PT TOLERATED WELL.
--- NOTE | 2017-08-09 14:50 | NUR ---
PT STATES HE WANTS TO LEAVE, BC HE ISN'T RECEIVING ANY IV ABX. DR SMITH NOTIFIED. SHE STATES SHE WILL SPEAK WITH DRS AND PATIENT.
--- NOTE | 2017-08-09 15:31 | NUR ---
PHYSICAL THERAPY PAtient with nurse discussing AMA options versus leaving later this date when MD in to d/c. If patient is still here tomorrow, will attempt PT evaluation. Thank you for this referral. Lianna De Santiago,PT
--- NOTE | 2017-08-09 15:31 | NUR ---
Patient discussing leaving hospital AMA with nursing. Possible d/c this date. No OT evaluation completed. Heidi Yost OTR/l
[2017-08-09 16:00] VITALS: BP 136/78
--- NOTE | 2017-08-09 16:00 | NUR ---
IN TO SEE PT, ALERT ORIENTED AND COOPERATIVE. PT EXPLAINED THAT HOSPITALIST WOULD LIKE HIM TO STAY AN EXTRA DAY TO MONITOR. PT STATES HE UNDERSTANDS AND AGREES. ALL SCHEDULED MEDICATION TAKEN WITH EASE. PT ADVISED THAT A STOOL SPECIMEN AND SPUTUM SPECIMEN IS NEEDED WHEN PT IS ABLE TO GIVE SAMPLE FOR BOTH, PT STATES HE UNDERSTANDS. NO S/S OF PAIN OR DISTRESS. RESPIRATIONS EASY. ENCOURAGED USE OF CALL LIGHT FOR NEEDS/CONCERNS.
[2017-08-09 20:00] VITALS: BP 99/60
--- NOTE | 2017-08-09 20:00 | NUR ---
PT RESTING IN BED. RESPS EASY AND REGULAR. NO DISTRESS NOTED AT THIS TIME. PLAN OF CARE REVIEWED. CALL LIGHT IN REACH.
[2017-08-10] VITALS: BP 114/69
--- NOTE | 2017-08-10 02:21 | NUR ---
PT RESTING IN BED NO DISTRESS NOTED AT THIS TIME. RESPS EASY AND REGULAR. CALL LIGHT IN REACH.
[2017-08-10 06:46] LABS: BASO % 0.4 % (0.0-1.0); EOS # 0.2 10*3/uL (0.0-0.4); EOS % 1.8 % (1.0-4.0); HEMATOCRIT 29.2 % (42.0-52.0); HEMOGLOBIN 8.8 g/dl (14.0-18.0); LYMPH # 2.5 10*3/uL (1.3-4.4); LYMPH % 25.5 % (27.0-41.0); MEAN CELL VOLUME 80.9 fl (80.0-94.0); MEAN CORPUSCULAR HGB 24.4 pg (27.0-31.0); MEAN CORPUSCULAR HGB CONC 30.1 g/dl (33.0-37.0); MEAN PLATELET VOLUME 9.2 fl (9.6-12.3); MONO # 0.8 10*3/uL (0.1-1.0); MONO % 8.4 % (3.0-9.0); NEUT # 6.2 10*3/uL (2.3-7.9); NEUT % 63.4 % (47.0-73.0); NUCLEATED RED BLOOD CELL 0.2 % (0.0-0.0); PLATELET COUNT AUTOMATED 363 10*3/uL (130-400); RED BLOOD COUNT 3.61 10*6/uL (4.50-5.90); RED CELL DISTRI WIDTH 17.8 % (0-14.5); WHITE BLOOD COUNT 9.8 10*3/uL (4.8-10.8)
[2017-08-10 07:16] LABS: ALBUMIN 1.8 gm/dl (3.1-4.5); BUN 13 mg/dl (7-24); CHLORIDE 99 mmol/L (98-107); CREATININE 0.49 mg/dL (0.70-1.30); PHOSPHOROUS 3.4 mg/dL (2.5-4.9); POTASSIUM 4.6 mmol/L (3.5-5.1); SGPT/ALT 8 U/L (12-78); SODIUM 138 mmol/L (136-145)
[2017-08-10 07:17] LABS: ALKALINE PHOSPHATASE 196 U/L (45-117); TOTAL PROTEIN 6.4 gm/dL (6.4-8.2)
[2017-08-10 07:26] LABS: SGOT/AST < 3 IU/L (3-35)
[2017-08-10 08:00] VITALS: BP 150/80
[2017-08-10] MEDS ORDERED: VITAMIN D5000 UNI1 PO (10:05)
[2017-08-10] MEDS ORDERED: GLUCOPHAGE500 MG PO (10:05)
--- NOTE | 2017-08-10 11:11 | NUR ---
PT REFUSED DISCHARGE PICTURES, PT ALSO REFUSED DRESSING CHANGED, PER PT HE HAS HOME HEALTH COMING AT 1200 TODAY.
--- NOTE | 2017-08-10 11:12 | NUR ---
PT CALLED [facility] FOR TRANSPORT HOME, PER PATIENT HE USES THE [facility] OFTEN AND THERE SHOULD BE NO ISSUE WITH TRANSFERRING TO HIS WHEELCHAIR AT HOME, PATIENTS STATES HES DONE THIS SEVERAL TIMES AND THEY GO GET HIS WHEELCHAIR FOR HIM FROM HIS APARTMENT.
--- NOTE | 2017-08-10 11:13 | NUR ---
Discharge instructions reviewed with patient/family. Patient receptive and verbalizes understanding. Follow-up care arranged. Written instructions given to patient/family. SAUL LYNCH
== END 2017-08-10 11:13 | disposition home health service (06) | DRG 871 ==
LOC: ED 15:42 → EDHOLD 18:06 → ICCU 18:06 → 4E 08-06 19:07
PROVIDERS: Family Medicine Adult Medicine; Internal Medicine; Internal Medicine Nephrology; Student in an Organized Health Care Education/Training Program; ADMIT Internal Medicine
PROC: 02HV33Z Insertion of Infusion Device into Superior Vena Cava, Percutaneous Approach (ICD-10-PCS; principal; 2017-08-04)
PROC: 30233N1 Transfusion of Nonautologous Red Blood Cells into Peripheral Vein, Percutaneous Approach (ICD-10-PCS; 2017-08-05)
DX: A41.9 Sepsis, unspecified organism (principal); J18.9 Pneumonia, unspecified organism; E43 Unspecified severe protein-calorie malnutrition; L89.154 Pressure ulcer of sacral region, stage 4; L89.224 Pressure ulcer of left hip, stage 4; L89.214 Pressure ulcer of right hip, stage 4; E87.1 Hypo-osmolality and hyponatremia; G82.20 Paraplegia, unspecified; N39.0 Urinary tract infection, site not specified; M86.60 Other chronic osteomyelitis, unspecified site; L97.419 Non-pressure chronic ulcer of right heel and midfoot with unspecified severity; L97.429 Non-pressure chronic ulcer of left heel and midfoot with unspecified severity; I83.014 Varicose veins of right lower extremity with ulcer of heel and midfoot; I83.024 Varicose veins of left lower extremity with ulcer of heel and midfoot; R65.20 Severe sepsis without septic shock; D72.810 Lymphocytopenia; D47.3 Essential (hemorrhagic) thrombocythemia; R73.9 Hyperglycemia, unspecified; R70.0 Elevated erythrocyte sedimentation rate; R74.8 Abnormal levels of other serum enzymes; Z72.0 Tobacco use; E55.9 Vitamin D deficiency, unspecified; E53.8 Deficiency of other specified B group vitamins; D50.9 Iron deficiency anemia, unspecified; A49.8 Other bacterial infections of unspecified site; Z68.20 Body mass index [BMI] 20.0-20.9, adult; Z88.6 Allergy status to analgesic agent; Z88.5 Allergy status to narcotic agent; Z91.048 Other nonmedicinal substance allergy status

== ENCOUNTER → 2017-10-05 | Outpatient (CLI) | payer MEDICAID ==
[~2017-10-05] MED LIST changes: +CYCLOBENZAPRINE10 MG PO; +GLUCOPHAGE500 MG PO; +VITAMIN D5000 UNI1 PO
== END | disposition home or self-care (01) ==
LOC: WOUNDCARE 04:07
DX: L89.314 Pressure ulcer of right buttock, stage 4 (principal); L89.324 Pressure ulcer of left buttock, stage 4; L89.154 Pressure ulcer of sacral region, stage 4; L89.612 Pressure ulcer of right heel, stage 2; M86.68 Other chronic osteomyelitis, other site; G82.20 Paraplegia, unspecified; F14.10 Cocaine abuse, uncomplicated; F17.210 Nicotine dependence, cigarettes, uncomplicated